=== PATIENT | male | born 1945 | race Caucasian/White ===

== ENCOUNTER → 2017-02-15 | Outpatient (CLI) | payer OTHER | END | disposition home or self-care (01) | LOC: GMAH 10:33 | PROVIDERS: ATTEND Family Medicine | DX: Z12.5 Encounter for screening for malignant neoplasm of prostate (principal); E78.2 Mixed hyperlipidemia | CPT/HCPCS: 84443; 84550; G0103 ==

== ENCOUNTER 2017-07-12 10:43 | Inpatient (IN) | payer OTHER ==
[2017-07-12] MEDS ORDERED: SODIUM CHLORIDE 0.9% (FLUSH) 10 ML SYG IV PRN ×2 (11:34→14:20)
[2017-07-12] MEDS ORDERED: VANCOMYCIN HCL INJ 1,000 MG, VANCOMYCIN HCL INJ 500 MG in SODIUM CHLORIDE 0.9% 250ML 25... IVPB ONE (11:35)
--- NOTE | 2017-07-12 11:39 | ED.PDOC ---
History of Present Illness - General Chief Complaint: Skin/Abrasion/Tear Stated Complaint: Rash to right leg Time Seen by Provider: 07/12/17 11:09 Source: patient, family Exam Limitations: no limitations - History of Present Illness Initial Comments: PT PRESENTS TO THE ED FOR RLE PAIN AND REDNESS X 1 DAY. PT WAS DIAGNOSED WITH STREP PHARYNGITIS 2 DAYS AGO AND STARTED ON KEFLEX. PT NOTICED REDNESS AND PAIN TO THE RLE YESTERDAY DESPITE BEING ON KEFLEX FOR STREP THROAT. Timing/Duration: 24 hours Severity: moderate Improving Factors: nothing Worsening Factors: nothing Associated Symptoms: denies symptoms Allergies/Adverse Reactions: Allergies NO KNOWN ALLERGY Allergy (Verified 07/12/17 11:17) Home Medications: Ambulatory Orders Aliskiren [Tekturna] 150 mg PO DAILY 12/02/14 Diltiazem HCl Coated Beads [Diltiazem Cd] 240 mg PO DAILY 12/02/14 Meloxicam [Mobic] 15 mg PO BID 12/02/14 Potassium Chloride [Micro-K] 8 meq PO DAILY 12/02/14 Temazepam 30 mg PO BEDTIME 07/12/17 Review of Systems - Review of Systems Constitutional: Denies: chills, fever EENTM: States: see HPI, throat pain. Denies: nose congestion Respiratory: Denies: cough, short of breath Cardiology: States: edema. Denies: chest pain, palpitations Gastrointestinal/Abdominal: Denies: abdominal pain, nausea, vomiting Genitourinary: Denies: dysuria, frequency Musculoskeletal: Denies: joint pain, joint swelling Skin: States: see HPI, change in color. Denies: dryness, lesions Neurological: Denies: headache, paresthesia Endocrine: States: no symptoms reported Hematologic/Lymphatic: States: no symptoms reported Past Medical History (General) - Patient Medical History Hx Seizures: No Hx Stroke: No Hx Dementia: No Hx Asthma: No Hx of COPD: No Hx Cardiac Disorders: No Hx Congestive Heart Failure: No Hx Pacemaker: No Hx Hypertension: Yes Hx Thyroid Disease: No Hx Diabetes: No Hx Gastroesophageal Reflux: No Hx Renal Disease: No Hx Cancer: No Hx of HIV: No Hx Hepatitis C: No Hx MRSA: No Surgical History: other - Vaccination History Hx Tetanus, Diphtheria Vaccination: No Hx Influenza Vaccination: Yes Hx Pneumococcal Vaccination: Yes Immunizations Up to Date: Yes - Social History Hx Tobacco Use: No Hx Chewing Tobacco Use: No Hx Alcohol Use: No Hx Substance Use: No Hx Substance Use Treatment: No Hx Depression: No Family Medical History - Family History Mother Family History: Unknown Physical Exam - Physical Exam General Appearance: Alert, No apparent distress Eye Exam: bilateral normal Ears, Nose, Throat: hearing grossly normal Neck: non-tender, full range of motion Respiratory: lungs clear, normal breath sounds, no respiratory distress Cardiovascular/Chest: regular rate, rhythm, no edema, no murmur Gastrointestinal/Abdominal: non tender, soft Back Exam: normal inspection Extremity: other - LARGE AREA OF ERYTHEMA AND TENDERNESS TO THE MEDIAL ASPECT OF THE RIGHT CALF. SEVERAL SUPERFICIAL ABRASIONS NOTED IN THE VACINITY OF THE ERYTHEMA. LYMPHANGITIC STREAKING UP THE MEDIAL ASPECT OF THE THIGH WITH SURROUNDING TENDERNESS. Neurologic: alert, normal mood/affect, oriented x 3 Skin Exam: normal color, warm/dry Progress - Results/Orders Results/Orders: 07/12/17 11:34 IV Care:Saline Lock per Protoc QSHIFT Sodium Chloride 0.9% (Flush) [Saline Flush Syringe] 10 ml IV PRN PRN 07/12/17 11:35 Vancomycin HCl Inj 1,000 mg Vancomycin HCl Inj 500 mg Sodium Chloride 0.9% 250Ml [NS 250ml] 250 ml IVPB ONCE 07/12/17 12:00 BLOOD CULTURE Stat Laboratory Results - last 24 hr 07/12/17 07/12/17 07/12/17 12:00 12:00 12:00 WBC 6.9 RBC 4.20 L Hgb 12.8 L Hct 36.9 L MCV 87.8 MCH 30.4 MCHC 34.6 RDW 14.3 Plt Count 149 MPV 7.9 Absolute Neuts (auto) 4.80 Absolute Lymphs (auto) 1.30 Absolute Monos (auto) 0.70 Absolute Eos (auto) 0.10 Absolute Basos (auto) 0.00 Neutrophils % 69.3 Lymphocytes % 19.0 L Monocytes % 9.8 H Eosinophils % 1.6 Basophils % 0.3 Sodium 134 L Potassium 3.9 Chloride 100 L Carbon Dioxide 26 Anion Gap 11.9 L BUN 30 H Creatinine 0.94 BUN/Creatinine Ratio 31.9 H Random Glucose 93 Serum Osmolality 274.1 L Calcium 9.0 Total Bilirubin 0.4 Direct Bilirubin < 0.1 Indirect Bilirubin 0.3 AST 24 ALT 16 Alkaline Phosphatase 46 Serum Total Protein 7.3 Albumin 3.5 Departure - Departure Clinical Impression: Failure of outpatient treatment Cellulitis Qualifiers: Site of cellulitis: extremity Site of cellulitis of extremity: lower extremity Laterality: right Qualified Code(s): L03.115 - Cellulitis of right lower limb Time of Disposition: 12:44 Disposition: Admit Patient Condition: Fair Departure Forms: ED Discharge - Pt. Copy, Patient Portal Self Enrollment Instructions: DI for Abrasion Referrals: Solo Pina MD [Primary Care Provider] - 1-2 Weeks Home Medications: Ambulatory Orders Aliskiren [Tekturna] 150 mg PO DAILY 12/02/14 Diltiazem HCl Coated Beads [Diltiazem Cd] 240 mg PO DAILY 12/02/14 Meloxicam [Mobic] 15 mg PO BID 12/02/14 Potassium Chloride [Micro-K] 8 meq PO DAILY 12/02/14 Temazepam 30 mg PO BEDTIME 07/12/17
[2017-07-12] MEDS ORDERED: SODIUM CHLORIDE 0.9% 250ML 250 ML ONE ×2 (11:48→23:10)
[2017-07-12] MEDS ORDERED: VANCOMYCIN HCL INJ 500 MG VIAL ONE ×2 (11:48→23:09)
[2017-07-12] MEDS ORDERED: VANCOMYCIN HCL INJ 1,000 MG VIAL IVPB ONE ×2 (11:48→23:10)
--- NOTE | 2017-07-12 13:48 | HP ---
HISTORY OF PRESENT ILLNESS: This 72 year-old white male was admitted to the hospital via the Emergency Room because of worsening infection in the right leg. He is followed closely by Dr. Pina in the clinic. On Monday morning, he became quite ill. This was 3 days ago. His illness included fever and chills with a sore throat. He was seen in the clinic on Monday, 2 days ago, in Dr. Pina's clinic and had a positive Strep test, and was started on Keflex 500 mg t.i.d. subsequently. This is the second bout of Strep pharyngitis within the last 3 weeks. He completed a 10 day course of Keflex 500 mg t.i.d. at the beginning of the month and was started on it again 2 days ago. On the following day, which would have been 1 day ago, he had worsening discomfort, tightness, pain and erythema involving the lower aspect of his right leg. This subsequently spread worsening to include over 50% of his leg with erythema fairly well demarcated and then with red streaking up the medial aspect of his thigh towards his groin. Symptoms worsened and he was referred to the Emergency Room because of worsening cellulitis having failed outpatient therapy on Keflex treatment. No previous history of similar symptoms. No history of DVTs in the past. The patient is currently retired. The patient is admitted to the hospital for parenteral antibiotic therapy after cultures are obtained to assist with resolution, but also preventing this from getting worse. PAST MEDICAL HISTORY: 1. Hypertension. 2. Skin cancer removed from the ear. 3. Significant nausea, vomiting and diarrhea present in September of this year resulting subsequently in 44 pounds of weight loss since then. PAST SURGICAL HISTORY: 1. Lumbar spine. 2. Both knee replacements. 3. Tonsillectomy at age 4. CURRENT MEDICATIONS: Please refer to list acquired by the nurse and verified his home medications. ALLERGIES: NONE KNOWN. FAMILY HISTORY: Positive for cancer, diabetes and strokes. SOCIAL HISTORY: He has been and is now retired as an agricultural teacher and a school custodian. He has never smoked. REVIEW OF SYSTEMS: Significant 44 pound weight loss since September evident recent with fever and chills with the current illness over the last 3 days persisting. HEENT: Recent sore throat showing some slight improvement. NECK: Supple. LUNGS: Some mild shortness of breath but no cough. No hemoptysis. CARDIOVASCULAR: No palpitations or chest pains. ABDOMEN: Some nausea and vomiting having been noted with his current illness but less diarrhea compared to September of this year. No blood in the stools. GENITOURINARY: Some burning upon urination evident. EXTREMITIES: Fairly significant erythema, pain and pus located out of a scabbed lesion on the anterior aspect of his right mid leg. This has spread with erythematous streaking up his medial aspect of his right thigh towards his groin. NEUROLOGIC: No focal neurological deficits. PHYSICAL EXAMINATION: VITAL SIGNS: Afebrile, pulse 56, blood pressure 125/70, room air saturation 95% . Weight is 118.8 kilos on a bed scale. GENERAL: The patient is awake, alert and oriented, and a good historian. His is also present for a portion of the history. HEENT: Within normal limits. Some erythema of the pharynx evident. NECK: Supple. No carotid bruits. No adenopathy. CHEST: Lungs are generally clear to auscultation. CARDIOVASCULAR: Heart tones are regular, fairly slow with no gallops. ABDOMEN: Soft with no organomegaly, masses or tenderness. EXTREMITIES: Left leg is within normal limits. Right leg has significant fairly well demarcated areas of erythema extending from the ankle and involving over 50% of the right calf and leg with a scab formation in the anterior garcia area as well as some small superficial dry scabs over the lower leg medially. PROCEDURE: The scab over the anterior garcia is removed by an 19 gauge needle allowing wound culture under the scab to be sent to the lab as the initial dose of vancomycin was being infused. Some tenderness is also noted over the medial thigh on palpation but no adenopathy at the groin at this time. NEUROLOGIC: No focal neurological deficits. LABORATORY: White count of 6,900 with 70% neutrophils, hemoglobin 12.8, normocytic normochromic presentation. Chemistry showed sodium 134 with sugar of 93, potassium 3.9, CO2 of 26, BUN 30, creatinine 0.94, 11.9 anion gap. Liver enzymes normal. Urinalysis generally clean. Blood cultures are pending as well as wound culture. ASSESSMENT: 1. Acute cellulitis right lower extremity especially involving the right leg and calf progressively worsening even though the patient currently on third day of Keflex therapy for a recent Streptococcus infection of the throat. 2. Recent acute recurrent Streptococcus pharyngitis documented with Strep screen in the clinic and on second course of therapy of Keflex 500 mg t.i.d. with erythematous cellulitis worsening on therapy. 3. Significant fatigue state. Will continue to evaluate for hypothyroidism versus cardiac etiologies plus the associated symptoms of a significant cellulitis. 4. History of significant weight loss after a course of gastrointestinal symptoms in September of this year with some residual weakness and nausea and vomiting currently present with his current illness. PLAN: Continue close followup. Start vancomycin per Pharmacy protocol. Observe closely. Rule out a DVT. Evaluate inflammatory markers with a C reactive protein and ESR. Elevate the right leg. Do a chest x-ray. Given some IV administration with potassium for moderate degree of dehydration state. Cleanse skin of the leg with dilute Hibiclens and dress to prevent spread locally. Observe closely. Will require at least 2 to 3 days of treatment as we observe the clinical course and await culture results. #[id number] [facility]
[2017-07-12] MEDS ORDERED: MAGNESIUM HYDROXIDE 30 ML UD PO PRN (14:20)
[2017-07-12] MEDS ORDERED: HYDROcodone 5MG/APAP 325MG 1 EA TAB PO PRN (14:20)
[2017-07-12] MEDS ORDERED: LEVALBUTEROL NEBS 1.25 MG/3 ML VIAL NEB PRN (14:20)
[2017-07-12] MEDS ORDERED: ONDANSETRON INJ 4 MG/2 ML VIAL IV PRN (14:20)
[2017-07-12] MEDS ORDERED: IV SET AND CAP CHANGE INJ INJ SCH (14:30)
[2017-07-12] MEDS ORDERED: CHLORHEXIDINE GLUCONATE 4 % 15 ML UD TOP ONE (15:00)
[2017-07-12] MEDS ORDERED: VANCOMYCIN PER PHARMACY INJ SCH (15:00)
[2017-07-12] MEDS: BIFIDOBACTERIUM INFANTIS 4 MG CAP PO SCH ×2 (15:26→20:53)
[2017-07-12] MEDS: CHLORHEXIDINE GLUC 4% 15ML 45 ML, WATER FOR IRRIGATION 1,000 ML TOP SCH ×4 (15:39→20:52)
--- NOTE | 2017-07-12 16:48 | RAD ---
EXAM DESCRIPTION: Chest,2 Views CLINICAL HISTORY: weakness, fever COMPARISON: None. FINDINGS: Two views of the chest are submitted. Cardiac silhouette appears normal. No focal parenchymal or pleural disease. No acute bony abnormality. There is no significant pulmonary vascular engorgement. IMPRESSION: No evidence of acute cardiopulmonary disease. Electronically signed by: Pete Henderson 07/12/2017 4:47 PM ENVIRONMENTAL LABORATORY TECHNICIAN
--- NOTE | 2017-07-12 17:07 | US ---
EXAM DESCRIPTION: Venous,Lower Extremity RT CLINICAL HISTORY: 72 years Male DVT? COMPARISON: None. TECHNIQUE: Duplex and color Doppler imaging performed to evaluate the extremity deep venous structures. Compression imaging and augmentation imaging performed. FINDINGS: No thrombus is identified in the deep venous structures imaged. There is normal flow, compressibility, and augmentation throughout. IMPRESSION: No DVT is identified. Electronically signed by: Pete Henderson 07/12/2017 5:06 PM FRAME PULLEY MORTISING MACHINE OPERATOR
--- NOTE | 2017-07-12 18:54 | PCM.CORE ---
Physician DVT/VTE - Prophylaxis Currently: Patient already on anticoagulation therapy - Nurse DVT Assessment & Total Each Risk Factor Represents 2 Points: Age 60-74 Each Risk Factor is 1 Point: Obesity (BMI >25) DVT Assessment Score: 3 - 3-4 High Risk Treatments: Sequential Compression Device Pharmacological: Enoxaparin 40 mg SQ Daily
[2017-07-12] MEDS ORDERED: ENOXAPARIN SODIUM 40 MG/0.4 ML SYG SUBCU SCH (19:00)
[2017-07-12] MEDS ORDERED: TEMAZEPAM 15 MG CAP ONE (19:02)
[2017-07-12] MEDS: TEMAZEPAM 15 MG CAP PO SCH (22:44)
[2017-07-13] MEDS: KCL 20 MEQ/NS 1,000 ML IVS PRN ×2 (00:22→17:14)
[2017-07-13] MEDS: VANCOMYCIN HCL INJ 1,000 MG, VANCOMYCIN HCL INJ 250 MG in SODIUM CHLORIDE 0.9% 250ML 25... IVPB SCH ×2 (00:25→11:21)
[2017-07-13] MEDS ORDERED: OMEPRAZOLE CAP 20 MG CAP ONE (05:04)
[2017-07-13] MEDS: OMEPRAZOLE CAP 20 MG CAP PO SCH (06:32)
[2017-07-13] MEDS ORDERED: MELOXICAM 7.5 MG TAB ONE (07:20)
[2017-07-13] MEDS: POTASSIUM CHLORIDE 8 MEQ TAB PO SCH (07:43)
[2017-07-13] MEDS: BIFIDOBACTERIUM INFANTIS 4 MG CAP PO SCH ×2 (08:37→21:21)
[2017-07-13] MEDS: ALISKIREN 150 MG PO SCH (08:38)
[2017-07-13] MEDS: MELOXICAM 7.5 MG TAB PO SCH (08:38)
[2017-07-13] MEDS: CHLORHEXIDINE GLUC 4% 15ML 45 ML, WATER FOR IRRIGATION 1,000 ML TOP SCH ×4 (08:38→21:22)
[2017-07-13] MEDS ORDERED: VANCOMYCIN HCL INJ 500 MG VIAL ONE ×2 (11:09→19:43)
[2017-07-13] MEDS ORDERED: SODIUM CHLORIDE 0.9% 250ML 250 ML ONE ×2 (11:09→19:43)
[2017-07-13] MEDS ORDERED: VANCOMYCIN HCL INJ 1,000 MG VIAL IVPB ONE ×2 (11:09→19:43)
--- NOTE | 2017-07-13 13:18 | PN ---
DATE: 07/13/17 SUBJECTIVE: the patient is seen today accompanied by Dr. Solo Pina, his primary care provider. The patient states there is significant improvement with less swelling and soreness upon range of motion as well as erythema of the leg compared to last evening. No shortness of breath, no nausea or vomiting. OBJECTIVE: VITAL SIGNS: Afebrile. Pulse 67. Blood pressure 169/88. Pulse oximetry 96% on room air. LUNGS: Clear. HEART: Regular. ABDOMEN: Soft. EXTREMITIES: There is diminished intensity of the erythema changes of the right leg and cellulitis with almost complete clearing of the lymphatic erythema spreading up the medial aspect of the right thigh. Still somewhat tender to palpation in the region of the right calf. No significant pus drainage from the area where the scab had previously been removed. Cleansing continues with diluted Hibiclens. LABORATORY: White count 5,100, hemoglobin 12.5. Chemistries show potassium 3.9 , sodium up to 139, BUN down to 27, creatinine 0.89, glucose 87, liver enzymes normal. Troponin 0, C-reactive protein very elevated at 17.7, TSH normal at 1.14. Sedrate 22. Urine is clean. Antistreptolysin screen was performed and was within normal limits, especially with the history of the recent strep pharyngitides and concern for an immune complex process contributing to his weight loss. Cultures of the right leg and blood cultures are negative at this time. It is of note that the culture on the wound of the right leg was obtained shortly after the initiation of the vancomycin, which may adversely affect the growth of organisms as collected. ASSESSMENT: 1. Acute cellulitis, right lower extremity especially involving the right leg and calf progressively worsening even though the patient currently on Keflex therapy for a recent Streptococcus infection of the throat. 2. Recent acute recurrent Streptococcus pharyngitis documented with Strep screen in the clinic and on second course of therapy of Keflex 500 mg t.i.d. with erythematous cellulitis worsening on therapy. 3. Significant fatigue state. Will continue to evaluate for hypothyroidism versus cardiac etiologies plus the associated symptoms of a significant cellulitis. 4. History of significant weight loss after a course of gastrointestinal symptoms in September of this year with some residual weakness and nausea and vomiting currently present with his current illness. PLAN: We will need to continue with current therapy and evaluate cultures and sensitivities by in the morning. If cultures fail to show any particular growth , then must consider an outpatient program such as Bactrim and doxycycline. History of strep recently did not show an elevated ASO titer. Continue evaluation because of the significant weight loss and the elevated C-reactive protein for any type of an immune process contributing and triggered by the significant GI symptoms back in September. Specialized followup necessary as indicated. Close followup with Dr. Pina in clinic. [facility][id number] [facility]
[2017-07-13] MEDS ORDERED: ENOXAPARIN SODIUM 40 MG/0.4 ML SYG SUBCU ONE (19:42)
[2017-07-13] MEDS: ENOXAPARIN SODIUM 40 MG/0.4 ML SYG SUBCU SCH (21:21)
[2017-07-13] MEDS: TEMAZEPAM 15 MG CAP PO SCH (22:57)
[2017-07-14] MEDS: VANCOMYCIN HCL INJ 1,000 MG, VANCOMYCIN HCL INJ 250 MG in SODIUM CHLORIDE 0.9% 250ML 25... IVPB SCH ×2 (00:19→12:51)
[2017-07-14] MEDS: KCL 20 MEQ/NS 1,000 ML IVS PRN (05:53)
[2017-07-14] MEDS: OMEPRAZOLE CAP 20 MG CAP PO SCH (06:12)
[2017-07-14] MEDS: POTASSIUM CHLORIDE 8 MEQ TAB PO SCH (08:00)
[2017-07-14] MEDS: BIFIDOBACTERIUM INFANTIS 4 MG CAP PO SCH ×2 (09:37→20:56)
[2017-07-14] MEDS: MELOXICAM 7.5 MG TAB PO SCH (09:37)
[2017-07-14] MEDS: CHLORHEXIDINE GLUC 4% 15ML 45 ML, WATER FOR IRRIGATION 1,000 ML TOP SCH ×4 (09:39→21:00)
[2017-07-14] MEDS: ALISKIREN 150 MG PO SCH (09:43)
--- NOTE | 2017-07-14 10:33 | PN ---
SUPERVISING PHYSICIAN: Kevon Murry MD DATE: 07/14/17 SUBJECTIVE: The patient is lying in his hospital bed with no complaints. He has no complaints of chest pain, shortness of breath, nausea, vomiting or diarrhea. He feels much better today and is pleased with the improvement in his right lower leg infection. OBJECTIVE: VITAL SIGNS: Afebrile. Heart rate 58. Blood pressure 145/80. Respiratory rate 18. O2 saturation 96% on room air. LUNGS: Clear to auscultation bilaterally. CARDIAC: Regular rate and rhythm. ABDOMEN: Soft, nondistended, nontender. Bowel sounds are positive. EXTREMITIES: Bilateral pedal pulses are +2. The area of erythema on his right lower leg has improved greatly. He only has a mild area of erythema to the medial portion of his right lower leg, approximately 10 to 12 cm. It is cool to the touch and there is no drainage or fluctuance and no edema. Previous markings of his infection have decreased to less than 40% of the previous markings. NEUROLOGIC: Awake, alert and oriented times three. LABORATORY: Electrolytes are basically within normal limits with BUN 27, creatinine 0.89. CBC is basically within normal limits with stable hemoglobin and hematocrit of 12.5 and 36.6. TSH 1.14. Preliminary wound culture shows no growth at 24 hours as well as his preliminary blood cultures show no growth at 24 hours. All other labs and films have been reviewed via the EMR. ASSESSMENT: 1. Acute cellulitis, right lower extremity with failed outpatient therapy and admitted on Keflex for for a recent Streptococcus infection of the throat. Cellulitis is improving on vancomycin. 2. Recent acute recurrent Streptococcus pharyngitis with positive Strep screen, improved. 3. Significant fatigue, improved. 4. History of significant weight loss after a course of gastrointestinal symptoms in September of this year. PLAN: We will continue present supportive care and continue to monitor cultures as well as ESR and CRP tomorrow. I will give him one additional day of vancomycin therapy since he is improving quite well. If his cultures are negative tomorrow, we can send him home on oral antibiotics such as doxycycline and Bactrim. If they continue to be elevated, he may need an immunology referral. I have discontinued his IV fluids and have encouraged him to increase his ambulation today. I have also encouraged good pulmonary hygiene. We will continue present supportive care and followup as needed. Dr. Murry is the collaborating physician and available for consultation. [facility][id number] [facility]
[2017-07-14] MEDS ORDERED: VANCOMYCIN HCL INJ 500 MG VIAL ONE ×2 (12:24→20:32)
[2017-07-14] MEDS ORDERED: SODIUM CHLORIDE 0.9% 250ML 250 ML ONE ×2 (12:24→20:32)
[2017-07-14] MEDS ORDERED: VANCOMYCIN HCL INJ 1,000 MG VIAL IVPB ONE ×2 (12:24→20:33)
[2017-07-14] MEDS ORDERED: SODIUM CHLORIDE 0.9% 10 ML VIAL ONE (20:35)
[2017-07-14] MEDS: ENOXAPARIN SODIUM 40 MG/0.4 ML SYG SUBCU SCH (20:56)
[2017-07-14] MEDS: SODIUM CHLORIDE 0.9% (FLUSH) 10 ML SYG IV SCH (20:57)
[2017-07-14] MEDS: TEMAZEPAM 15 MG CAP PO SCH (22:39)
[2017-07-15] MEDS: VANCOMYCIN HCL INJ 1,000 MG, VANCOMYCIN HCL INJ 250 MG in SODIUM CHLORIDE 0.9% 250ML 25... IVPB SCH ×2 (00:21→11:38)
[2017-07-15] MEDS: OMEPRAZOLE CAP 20 MG CAP PO SCH (06:00)
[2017-07-15] MEDS: SODIUM CHLORIDE 0.9% (FLUSH) 10 ML SYG IV SCH (08:00)
[2017-07-15] MEDS: MELOXICAM 7.5 MG TAB PO SCH (08:00)
[2017-07-15] MEDS: BIFIDOBACTERIUM INFANTIS 4 MG CAP PO SCH (08:00)
[2017-07-15] MEDS: ALISKIREN 150 MG PO SCH (08:00)
[2017-07-15] MEDS: CHLORHEXIDINE GLUC 4% 15ML 45 ML, WATER FOR IRRIGATION 1,000 ML TOP SCH ×2 (08:01)
[2017-07-15] MEDS: POTASSIUM CHLORIDE 8 MEQ TAB PO SCH (08:06)
[2017-07-15 10:15] VITALS: BP 160/70; TEMP 97.5; O2SAT 98
[2017-07-15] MEDS ORDERED: SODIUM CHLORIDE 0.9% 250ML 250 ML ONE (11:31)
[2017-07-15] MEDS ORDERED: VANCOMYCIN HCL INJ 500 MG VIAL ONE (11:31)
[2017-07-15] MEDS ORDERED: VANCOMYCIN HCL INJ 1,000 MG VIAL IVPB ONE (11:32)
--- NOTE | 2017-07-15 13:12 | DS ---
SUPERVISING PHYSICIAN: Kevon Muryr M.D. DISCHARGE DIAGNOSIS: 1. Acute cellulitis of the right lower extremity with failed outpatient therapy and admitted on Keflex for recent Streptococcus infection of the throat. Cellulitis is improving on vancomycin. 2. Recent acute recurrent Streptococcus pharyngitis with positive Strep screen , improved. 3. Significant fatigue that has improved. 4. History of significant weight loss after a course of gastrointestinal symptoms in September of this year. He has lost approximately 40 pounds. HISTORY OF PRESENT ILLNESS: This is a 72 year-old male patient that was admitted to the hospital via the Emergency Room due to worsening infection in his right lower leg. He had seen his primary care physician, Dr. Pina, in the clinic several days before due to fever and chills associated with a sore throat. He was seen in the clinic on Monday. His Strep test was positive. He was started on Keflex. This was his second bout of Strep pharyngitis within the last 3 weeks. He had completed a 10 day course of Keflex earlier in the month and was again seen in the clinic for those symptoms. During this time, he had tightness and pain with erythema that involved the lower medial aspect of his right leg that extended up into his calf. It continued to spread worsening to include 50% of his leg with erythema with a fairly well demarcated red streaking up the medial aspect of his thigh toward his groin. Symptoms worsened so he came to the Emergency Room. He has no history of cellulitis or history of DVTs. He was admitted to the hospital for vancomycin therapy as well as to monitor cultures. HOSPITAL COURSE: He was admitted to the hospital and placed on vancomycin as well as Probiotics. Initially when he was in the hospital his ESR was 22 and CRP was 70.7. His white count was always within normal limits. He also had a lower extremity ultrasound that was negative for DVT. His cellulitis improved markedly over the next few days and today there is very minimal erythema to the medial portion of his lower leg. There is no tenderness or edema. There is no fluctuance or drainage and he will be discharged home today in stable condition. He will receive 1 additional dosing of vancomycin before discharge. The patient's vital signs have been stable. Today, his ESR is within normal limits and his CRP has decreased to 3.3. DISCHARGE PLAN: The patient will be discharged home in stable condition to resume his previous activity. It is recommended that he elevate his right leg as much as possible. He will be discharged on 7 days of Bactrim and Doxycycline. He has a followup appointment with Dr. Pina on 07/20/17 at 9: 15 AM. Recommend a CRP to be done at followup appointment to check for resolution. He is to return to the hospital for any further complications or worsening of his symptoms. He is to resume his previous diet and activity level. DISCHARGE MEDICATIONS: 1. Micro-K. 2. Mobic. 3. Diltiazem. 4. Tekturna. 5. Temazepam. 6. Doxycycline. 7. Lactobacillus. 8. Bactrim DS. Dr. Murry is the collaborating physician available for consultation. #[id number] and [id number] [facility] [place]
== END 2017-07-15 13:55 | disposition home or self-care (01) | DRG 603 ==
LOC: ER 10:43 → MS 13:47
PROVIDERS: ADMIT Emergency Medicine; ATTEND Nurse Practitioner Acute Care
DX: L03.115 Cellulitis of right lower limb (principal); J02.0 Streptococcal pharyngitis; I10 Essential (primary) hypertension; Z96.653 Presence of artificial knee joint, bilateral; R53.83 Other fatigue; R63.4 Abnormal weight loss; Z79.899 Other long term (current) drug therapy; Z68.33 Body mass index [BMI] 33.0-33.9, adult

== ENCOUNTER → 2017-07-20 | Outpatient (CLI) | payer OTHER | END | disposition home or self-care (01) | LOC: GMAH 10:23 | PROVIDERS: ATTEND Family Medicine | DX: L03.115 Cellulitis of right lower limb (principal) ==

== ENCOUNTER → 2018-05-14 | Outpatient (CLI) | payer OTHER | LOC: GMAH 11:19 | PROVIDERS: ATTEND Family Medicine | DX: I10 Essential (primary) hypertension (principal); E78.2 Mixed hyperlipidemia; Z12.5 Encounter for screening for malignant neoplasm of prostate | CPT/HCPCS: 84443; 84550; G0103 ==

== ENCOUNTER → 2018-11-30 | Outpatient (CLI) | payer OTHER ==
--- NOTE | 2018-11-30 13:40 | RAD ---
EXAM DESCRIPTION: Knee,Right Complete CLINICAL HISTORY: 73 years Male, M25.561, M25.551 TECHNIQUE: views of the knee were performed. COMPARISON: None available. FINDINGS: The visualized bones appear well mineralized. No acute fracture or dislocation. No evidence of suprapatellar joint effusion. The soft tissues appear grossly unremarkable. IMPRESSION: Electronically signed by: Gelacio Hassan MD 11/30/2018 1:37 PM CDT
--- NOTE | 2018-11-30 13:40 | RAD ---
EXAM DESCRIPTION: Pelvis CLINICAL HISTORY: 73 years Male, M25.561, M25.551 COMPARISON: None. TECHNIQUE: AP radiograph of the pelvis was performed. FINDINGS: The pelvic ring is grossly intact. The visualized bones are well-mineralized. Moderate bilateral SI joint and hip joint degenerative changes noted. Visualized lumbar spine also demonstrates moderate degenerative changes. IMPRESSION: 1. Single AP radiograph of the pelvis demonstrates grossly intact pelvic ring. 2. Moderate bilateral hip joint osteoarthritic changes. Electronically signed by: Gelacio Hassan MD 11/30/2018 1:37 PM CDT
== END ==
LOC: RAD 08:01
PROVIDERS: ATTEND Orthopaedic Surgery
DX: M17.11 Unilateral primary osteoarthritis, right knee (principal); M16.0 Bilateral primary osteoarthritis of hip; Z96.651 Presence of right artificial knee joint

== ENCOUNTER → 2019-05-23 | Outpatient (CLI) | payer OTHER | LOC: GMA MATASK 10:31 | PROVIDERS: ATTEND Family Medicine | DX: I10 Essential (primary) hypertension (principal); E78.2 Mixed hyperlipidemia; Z12.5 Encounter for screening for malignant neoplasm of prostate | CPT/HCPCS: 84443; 84550; G0103 ==

== ENCOUNTER → 2019-05-29 | Outpatient (CLI) | payer OTHER | LOC: GMA MATASK 09:35 | PROVIDERS: ATTEND Family Medicine | DX: R19.7 Diarrhea, unspecified (principal) ==

== ENCOUNTER → 2019-10-23 | Outpatient (CLI) | payer OTHER ==
--- NOTE | 2019-10-23 13:18 | NM ---
EXAM DESCRIPTION: Bone Scan, 3Phase CLINICAL HISTORY: 74 years Male, right knee pain COMPARISON: Right knee radiograph dated October 17, 2019 TECHNIQUE: Following intravenous administration of 26.2 mCi technetium 99m MDP, three-phase bone scan over both knees. FINDINGS: Blood flow phase: Increased blood flow to the lateral femoral condyle region of the right knee. No abnormal increased blood flow to the left knee. Blood pool phase: Increased blood pool to the lateral femoral condylar region of the right knee. Mild increased blood pool also noted to the medial femoral condylar region of the right knee. No abnormal increased blood pool to the left knee Delayed phase: Mesenteric increased delayed phase uptake lateral femoral condylar region of the right knee. Increased delayed phase uptake also noted of the medial and lateral tibial plateaus of the right knee and right patella. Delayed phase uptake also noted of the medial tibial plateau of the left knee. Photopenic defects of the bilateral knees, compatible with bilateral knee prosthesis. IMPRESSION: 1. Positive three-phase bone scan involving the lateral femoral condyle of the right knee. In the appropriate clinical settings, findings would be compatible with prosthesis loosening. Infectious process can also demonstrated positive three-phase bone scan. Please correlate clinically. 2. Mild increased blood pool of the medial femoral condylar region of the right knee, likely representing reactive activity. 3. Delayed phase uptake involving the medial and lateral tibial plateaus and patella of the right knee as well as the medial tibial plateau of the left knee. These most likely represent reactive change/uptake. Electronically signed by: Sly Riddle MD 10/23/2019 1:17 PM CDT
== END ==
LOC: NM 09:00
PROVIDERS: ATTEND Orthopaedic Surgery
DX: M25.561 Pain in right knee (principal)
CPT/HCPCS: 78315; A9503

== ENCOUNTER 2019-12-11 05:53 | Day surgery (SDC) | payer OTHER ==
[2019-12-11] MEDS ORDERED: LIDOCAINE 1% 10 ML VIAL INJ ONE ×4 (07:00→10:50)
[2019-12-11] MEDS ORDERED: PROPOFOL 200 MG/20 ML VIAL IV ONE (07:00)
[2019-12-11] MEDS ORDERED: ceFAZolin SODIUM 1 GM VIAL ONE ×2 (07:47→09:28)
[2019-12-11] MEDS ORDERED: LACTATED RINGERS 1,000 ML ONE (07:47)
[2019-12-11] MEDS ORDERED: SODIUM CHL 0.9% 100ML MINI-BAG 100 ML IVPB ONE (07:47)
[2019-12-11] MEDS ORDERED: VANCOMYCIN HCL INJ 1,000 MG VIAL IVPB ONE ×3 (09:28→10:50)
[2019-12-11] MEDS ORDERED: BUPIVACAINE 0.25% INJ 30 ML VIAL INJ ONE ×3 (09:28→10:50)
[2019-12-11 10:01] VITALS: O2SAT 97
[2019-12-11] MEDS ORDERED: ceFAZolin SODIUM 1 GM VIAL IRRIG ONE ×2 (10:20→10:50)
[2019-12-11] MEDS ORDERED: fentaNYL CITRATE INJ 50 MCG/ML 2 ML AMP ONE (10:39)
[2019-12-11] MEDS ORDERED: MIDAZOLAM INJ 2 MG/2 ML VIAL ONE (10:39)
[2019-12-11 12:15] VITALS: BP 140/68; TEMP 96.5
--- NOTE | 2019-12-12 08:29 | OP ---
DATE OF PROCEDURE: 12/11/19 PREOPERATIVE DIAGNOSIS: 1. Left carpal tunnel syndrome. POSTOPERATIVE DIAGNOSIS: 1. Left carpal tunnel syndrome. PROCEDURE: 1. Left carpal tunnel release. SURGEON: Pedro Negrete MD. VALVE SETTER: Pete Gayle CST, SA-C. ANESTHESIA: Local with sedation. COMPLICATIONS: None. FINDINGS: Thickening of the transverse carpal ligament. INDICATION: Mr. Fernandez has a history of symptoms consistent with carpal tunnel syndrome. Unfortunately, he has failed to gain relief with conservative measures. After discussing the risks, benefits and alternatives to operative therapy, the patient has given informed consent for carpal tunnel release. PROCEDURE: The patient was brought to the Operating Room and placed in the supine position. Sedation was administered and local anesthetic was injected into the operative area under sterile conditions. After the injection of anesthetic, the arm was sterilely prepped and draped. A longitudinal incision was made directly overlying the transverse carpal ligament and blunt dissection was carried down to the ligament. The transverse carpal ligament was sharply transected along its length and a [place] elevator was used to ensure complete release of the ligament. Once release had been confirmed, the wound was thoroughly irrigated and the wound was closed with Nylon suture. A sterile dressing was placed and the patient was taken to the Day Surgery Unit. POSTOPERATIVE PLAN: The patient has been instructed to do range of motion of the digits and will followup with us in two days. #[id number] [facility]TD[facility]
== END 2019-12-11 12:05 | disposition home or self-care (01) ==
LOC: AMB 05:53
PROVIDERS: ATTEND Orthopaedic Surgery
DX: G56.02 Carpal tunnel syndrome, left upper limb (principal); I10 Essential (primary) hypertension; Z79.899 Other long term (current) drug therapy

== ENCOUNTER 2020-01-08 07:35 | Day surgery (SDC) | payer OTHER ==
[~2020-01-08 07:35] MED LIST: LIDOCAINE 1% 10 ML VIAL INJ ONE; PROPOFOL 200 MG/20 ML VIAL IV ONE
[2020-01-08] MEDS ORDERED: ceFAZolin SODIUM 1 GM VIAL IVPB ONE (08:16)
[2020-01-08] MEDS ORDERED: BUPIVACAINE 0.25% INJ 30 ML VIAL INJ ONE (08:25)
[2020-01-08] MEDS ORDERED: LIDOCAINE 1% 10 ML VIAL INJ ONE ×2 (08:25)
[2020-01-08] MEDS ORDERED: VANCOMYCIN HCL INJ 1,000 MG VIAL IVPB ONE ×2 (08:37→08:50)
[2020-01-08] MEDS ORDERED: ceFAZolin SODIUM 1 GM VIAL INJ ONE ×2 (08:37→08:50)
[2020-01-08 09:38] VITALS: BP 136/61; TEMP 97.8; O2SAT 97
--- NOTE | 2020-01-08 09:41 | OP ---
DATE OF PROCEDURE: 01/08/20 PREOPERATIVE DIAGNOSIS: 1. Right carpal tunnel syndrome. POSTOPERATIVE DIAGNOSIS: 1. Right carpal tunnel syndrome. PROCEDURE: 1. Carpal tunnel release. SURGEON: Pedro Negrete MD. JOB DEVELOPER [employer]: Pete Gayle CST, SA-C. ANESTHESIA: Local with sedation. COMPLICATIONS: None. FINDINGS: Thickening of the transverse carpal ligament. INDICATION: Mr. Fernandez has a history of symptoms consistent with carpal tunnel syndrome. He has had contralateral carpal tunnel release and has requested carpal tunnel release on his right side. After discussing the risks, benefits and alternatives to that, the patient has given informed consent for carpal tunnel release. PROCEDURE: The patient was brought to the Operating Room and placed in the supine position. Sedation was administered and local anesthetic was injected into the operative area under sterile conditions. After the injection of anesthetic, the arm was sterilely prepped and draped. A longitudinal incision was made directly overlying the transverse carpal ligament and blunt dissection was carried down to the ligament. The transverse carpal ligament was sharply transected along its length and a [place] elevator was used to ensure complete release of the ligament. Once release had been confirmed, the wound was thoroughly irrigated and the wound was closed with Nylon suture. A sterile dressing was placed and the patient was taken to the Day Surgery Unit. POSTOPERATIVE PLAN: The patient has been encouraged to do range of motion of the digits and will followup with us in two days. #[id number] [facility]TDD
== END 2020-01-08 09:30 | disposition home or self-care (01) ==
LOC: AMB 07:35
PROVIDERS: ATTEND Orthopaedic Surgery
DX: G56.01 Carpal tunnel syndrome, right upper limb (principal); I10 Essential (primary) hypertension; E66.9 Obesity, unspecified; M19.042 Primary osteoarthritis, left hand; M19.041 Primary osteoarthritis, right hand; Z79.899 Other long term (current) drug therapy; Z79.1 Long term (current) use of non-steroidal anti-inflammatories (NSAID)
CPT/HCPCS: 01810; 64721; 80307; 87070; 87077; J0690; J3370; J3490

== ENCOUNTER → 2020-05-04 | Outpatient (CLI) | payer OTHER | LOC: LAB.O 13:38 | PROVIDERS: ATTEND Orthopaedic Surgery | DX: Z01.818 Encounter for other preprocedural examination (principal) ==

== ENCOUNTER 2020-05-12 05:31 | Inpatient (IN) | payer OTHER ==
[2020-05-12] MEDS ORDERED: SODIUM CHL 0.9% 100ML MINI-BAG 100 ML IVPB ONE (05:39)
[2020-05-12] MEDS ORDERED: ceFAZolin SODIUM 1 GM VIAL ONE ×3 (05:40→09:02)
[2020-05-12] MEDS ORDERED: LACTATED RINGERS 1,000 ML ONE (05:40)
[2020-05-12] MEDS ORDERED: SODIUM CHLORIDE 0.9% 250ML 250 ML ONE (05:40)
[2020-05-12] MEDS ORDERED: TRANEXAMIC ACID 1,000 MG/10 ML VIAL ONE ×2 (05:40→05:41)
[2020-05-12] MEDS ORDERED: VANCOMYCIN HCL INJ 1,000 MG VIAL IVPB ONE ×5 (05:40→09:10)
[2020-05-12] MEDS ORDERED: SODIUM CHLORIDE 0.9% (FLUSH) 10 ML SYG ONE (05:40)
[2020-05-12] MEDS ORDERED: SODIUM CHLORIDE 0.9% 100ML 100 ML IVPB ONE ×2 (05:40→16:18)
[2020-05-12] MEDS ORDERED: BUPIVACAINE 0.5% 30 ML VIAL INJ ONE ×2 (06:22→06:52)
[2020-05-12] MEDS ORDERED: BUPIVACAINE LIPOSOME 13.3 MG/ML VIAL INJ ONE ×2 (06:22→06:52)
[2020-05-12] MEDS ORDERED: HYDROmorphone HCL INJ 2 MG/ML VIAL ONE (06:37)
[2020-05-12] MEDS ORDERED: MIDAZOLAM INJ 5 MG/5 ML VIAL ONE (06:37)
[2020-05-12] MEDS ORDERED: KETAMINE HCL 100 MG/ML VIAL ONE (06:37)
[2020-05-12] MEDS ORDERED: FAMOTIDINE INJ 10 MG/ML VIAL IV ONE (06:37)
[2020-05-12] MEDS ORDERED: methylPREDNISolone ACETATE 80 MG/ML VIAL ONE (06:45)
[2020-05-12] MEDS ORDERED: BUPIVACAINE 0.25% INJ 30 ML VIAL INJ ONE ×2 (06:45→09:43)
[2020-05-12] MEDS ORDERED: LIDOCAINE 1% 10 ML VIAL INJ ONE ×3 (06:45→09:41)
[2020-05-12] MEDS ORDERED: ceFAZolin SODIUM 1 GM VIAL IRRIG ONE ×2 (06:52→09:10)
[2020-05-12] MEDS ORDERED: PROPOFOL 200 MG/20 ML VIAL IV ONE (07:00)
[2020-05-12] MEDS ORDERED: DEXAMETHASONE INJ 10 MG/ML VIAL ONE (07:00)
[2020-05-12] MEDS ORDERED: SODIUM CHLORIDE 0.9% 50 ML VIAL ONE (07:00)
[2020-05-12] MEDS ORDERED: GLYCOPYRROLATE 0.2 MG/ML VIAL ONE (07:00)
[2020-05-12] MEDS ORDERED: MAGNESIUM SULFATE INJ 1 GM/2 ML VIAL ONE (07:00)
[2020-05-12] MEDS ORDERED: methylPREDNISolone ACETATE 80 MG/ML VIAL IM ONE (09:44)
[2020-05-12] MEDS ORDERED: ELECTROLYTE-A 1,000 ML IVS ONE (09:46)
[2020-05-12] MEDS ORDERED: MAGNESIUM HYDROXIDE 30 ML UD PO PRN (10:26)
[2020-05-12] MEDS ORDERED: PROMETHAZINE HCL INJ 25 MG in SODIUM CHLORIDE 0.9% 50ML 50 ML IVPB PRN (10:26)
[2020-05-12] MEDS ORDERED: ACETAMINOPHEN 325 MG TAB PO PRN (10:26)
[2020-05-12] MEDS ORDERED: BENZOCAINE-MENTH LOZ (CEPACOL) 1 EA LOZ MT PRN (10:26)
[2020-05-12] MEDS ORDERED: ONDANSETRON INJ 4 MG/2 ML VIAL IV PRN (10:26)
[2020-05-12] MEDS ORDERED: ZOLPIDEM TARTRATE 5 MG TAB PO PRN (10:26)
[2020-05-12] MEDS ORDERED: TRANEXAMIC ACID INJ 1,000 MG in SODIUM CHLORIDE 0.9% 100ML 100 ML IVPB ONE (10:26)
[2020-05-12] MEDS ORDERED: MORPHINE SULFATE INJ 10 MG/ML VIAL IM PRN (10:26)
[2020-05-12] MEDS ORDERED: ALUMINUM & MAGNESIUM HYDROXIDE 30 ML UD PO PRN (10:26)
[2020-05-12] MEDS ORDERED: PROMETHAZINE HCL INJ 12.5 MG in SODIUM CHLORIDE 0.9% 50ML 50 ML IVPB PRN (10:26)
[2020-05-12] MEDS ORDERED: BISACODYL SUPPOSITORY 10 MG PR PRN (10:26)
[2020-05-12] MEDS ORDERED: SODIUM CHLORIDE 0.9% (FLUSH) 10 ML SYG IV PRN (10:26)
[2020-05-12] MEDS ORDERED: ACETAMINOPHEN 500 MG TAB PO PRN (10:26)
[2020-05-12] MEDS ORDERED: NALOXONE HCL INJ 0.4 MG/ML VIAL IV PRN (10:26)
[2020-05-12] MEDS ORDERED: traMADol HCL 50 MG TAB PO PRN (10:26)
[2020-05-12] MEDS ORDERED: HYDROcodone 5MG/APAP 325MG 1 EA TAB PO PRN (10:26)
[2020-05-12] MEDS ORDERED: CYCLOBENZAPRINE HCL 10 MG TAB PO PRN (10:26)
[2020-05-12] MEDS ORDERED: DEX 5% W/NACL 0.45% 1000ML 1,000 ML IVS PRN (10:26)
[2020-05-12] MEDS ORDERED: HYDROcodone 10MG/APAP 325MG 1 EA TAB PO PRN (10:26)
[2020-05-12] MEDS ORDERED: MORPHINE SULFATE INJ 10 MG/ML VIAL IV PRN (10:26)
[2020-05-12] MEDS ORDERED: MORPHINE PCA 1 MG/ML 100 ML BAG IVPB SCH (10:30)
[2020-05-12] MEDS ORDERED: IV SET AND CAP CHANGE INJ INJ SCH (10:30)
[2020-05-12] MEDS ORDERED: CADD ADMIN SET 1 EA PKG INJ ONE (10:43)
--- NOTE | 2020-05-12 14:45 | RAD ---
EXAM DESCRIPTION: Knee,Right 2 views x-ray CLINICAL HISTORY: 75 yearsMale, TKA COMPARISON: 10/17/2019 IMPRESSION: Operative changes of a right total hip arthroplasty. Components appear in excellent alignment, with no complicating features. Postoperative gas in the soft tissues. No acute fracture. Electronically signed by: Steve Walls MD 05/12/2020 2:44 PM CDT [facility]
--- NOTE | 2020-05-12 15:01 | RAD ---
EXAM DESCRIPTION: Knee,Right 2 views x-ray CLINICAL HISTORY: 75 yearsMale, TKA COMPARISON: 10/17/2019 IMPRESSION: Operative changes of a right total hip arthroplasty. Components appear in excellent alignment, with no complicating features. Postoperative gas in the soft tissues. No acute fracture. Electronically signed by: Steve Walls MD 05/12/2020 2:44 PM CDT [facility]
--- NOTE | 2020-05-12 15:01 | RAD ---
EXAM DESCRIPTION: Knee,Right 2 views x-ray CLINICAL HISTORY: 75 yearsMale, TKA COMPARISON: 10/17/2019 IMPRESSION: Operative changes of a right total hip arthroplasty. Components appear in excellent alignment, with no complicating features. Postoperative gas in the soft tissues. No acute fracture. Electronically signed by: Steve Walls MD 05/12/2020 2:44 PM CDT [id number]
[2020-05-12] MEDS: ceFAZolin SODIUM 2 GM in SODIUM CHLORIDE 0.9% 100ML 100 ML IVPB SCH (16:23)
[2020-05-12] MEDS: CELECOXIB 100 MG CAP PO SCH (16:24)
[2020-05-12] MEDS: VANCOMYCIN HCL INJ 1,000 MG in SODIUM CHLORIDE 0.9% 250ML 250 ML IVPB SCH (17:54)
[2020-05-12] MEDS ORDERED: DOCUSATE CALCIUM 240 MG CAP ONE (19:21)
[2020-05-12] MEDS ORDERED: ENOXAPARIN SODIUM 30 MG/0.3 ML SYG SUBCU ONE (19:21)
[2020-05-12] MEDS: DOCUSATE CALCIUM 240 MG CAP PO SCH (20:05)
[2020-05-12] MEDS ORDERED: TEMAZEPAM 15 MG CAP ONE (20:15)
[2020-05-12] MEDS: TEMAZEPAM 15 MG CAP PO PRN ×2 (22:14→23:16)
[2020-05-12] MEDS: ENOXAPARIN SODIUM 30 MG/0.3 ML SYG SUBCU SCH (22:14)
[2020-05-13] MEDS: VANCOMYCIN HCL INJ 1,000 MG in SODIUM CHLORIDE 0.9% 250ML 250 ML IVPB SCH ×2 (05:42→16:32)
[2020-05-13] MEDS: CELECOXIB 100 MG CAP PO SCH ×2 (08:26→15:43)
[2020-05-13] MEDS: MAGNESIUM OXIDE 400 MG TAB PO SCH (08:26)
[2020-05-13] MEDS: ceFAZolin SODIUM 2 GM in SODIUM CHLORIDE 0.9% 100ML 100 ML IVPB SCH ×5 (08:26→23:58)
--- NOTE | 2020-05-13 08:27 | CONS ---
SUPERVISING PHYSICIAN: Karlo Strange MD REASON FOR CONSULTATION: Postoperative medical management. HISTORY OF PRESENT ILLNESS: Mr. Fernandez is a 75 year-old male patient who had a total knee done over 20 years previously. He had been having some difficulty with the knee and it was found the needed revision and he was admitted today for elective revision of the total knee by Dr. Pedro Negrete. He had no intraoperative complications and seeing him in the postoperative state. I was asked to see the patient in medical consultation and help manage with his chronic illnesses. He was found to be in stable condition, PAST MEDICAL HISTORY: 1. Hypertension. 2. Previous skin cancer removed from his ear. PAST SURGICAL HISTORY: 1. Bilateral knee replacement. 2. Lumbar spine surgery. 3. Tonsillectomy at age 4. 4. Bilateral carpal tunnel release. CURRENT MEDICATIONS: 1. Temazepam 30 mg at bedtime. 2. Potassium chloride 8 mEq daily. 3. Meloxicam 15 mg daily. 4. Advil 200 mg daily. 5. Diltiazem 240 mg daily. 6. Tekturna 150 mg daily. 7. Tylenol as needed. ALLERGIES: No known drug allergies. FAMILY HISTORY: Noncontributory. SOCIAL HISTORY: The patient is a retired [employer] teacher. He lives in [place]. He has no history of smoking, does not drink alcohol. He is . REVIEW OF SYSTEMS: CONSTITUTIONAL: Denies general malaise, fevers, chills, unintentional weight loss. HEENT: Negative for headaches. vision changes, sore throat. nasal congestion, earaches. CHEST: Denies shortness of breath, wheezing or coughing. HEART: Denies chest pain, palpitations, tachycardia or syncopal episodes. ABDOMEN: Denies nausea, vomiting, diarrhea or constipation, abdominal pains. GENITOURINARY: Denies dysuria, hematuria or polyuria. MUSCULOSKELETAL: As noted in history of present illness. SKIN: Denies lesions, rashes, moles or unexplained changes. NEUROLOGIC: Denies ataxia, seizures, vision changes or headaches or syncopal episodes. HEMATOLOGICAL: Denies unexplained bleeding, easy bruising or transfusion reactions. PHYSICAL EXAMINATION: VITAL SIGNS: Temperature 98.7, pulse 75, blood pressure 134/75, respirations 18, oxygen saturation 95% on room air. GENERAL: The patient is resting comfortably. He is alert. HEENT: Tympanic membranes clear bilaterally. Oropharynx pink, moist without lesions. NECK: Supple, non-tender, full range of motion. No jugular venous distention. CHEST: Clear to auscultation bilaterally without rhonchi, rales, or wheezes. HEART: Regular rate and rhythm without murmurs, rubs, or gallops. ABDOMEN: Soft, non-tender, positive bowel sounds. EXTREMITIES: Right leg has a bandage in place. Distal pulses are strong. Capillary refill brisk. NEUROLOGIC: He is alert and oriented x3. Cranial nerves II through XII are grossly intact. SKIN: Warm, pink and dry. LABORATORY: Postoperative hemoglobin and hematocrit is pending. RADIOLOGY: Please see postoperative studies. IMPRESSION: 1. Revision of total right knee by orthopedic surgeon, Dr. Pedro Negrete. postoperative day #0. 2. Hypertension. PLAN: We will follow the patient postoperative as he continues with physical therapy and rehabilitation efforts. I talked to Dr. Negrete and the plan is if he does well in the morning, he may be able to go home tomorrow. He will have prophylaxis per protocol. We will continue his him home medications as appropriate to care once those have been updated and verified. Further management will be with Dr. Negrete and physical therapy. Until he can transition to outpatient management, we will continue to monitor him and treat as needed #[id number] [facility]
[2020-05-13] MEDS: ENOXAPARIN SODIUM 30 MG/0.3 ML SYG SUBCU SCH ×2 (10:56→22:21)
[2020-05-13] MEDS: DOCUSATE CALCIUM 240 MG CAP PO SCH ×2 (10:56→21:53)
--- NOTE | 2020-05-13 11:05 | OP ---
DATE OF PROCEDURE: 05/12/20 PREOPERATIVE DIAGNOSIS: 1. Failed right total knee arthroplasty. POSTOPERATIVE DIAGNOSIS: 1. Failed right total knee arthroplasty. PROCEDURE: 1. Revision arthroplasty. SURGEON: Pedro Negrete MD. COUNTY JUDGE: Pete Gayle CST, SA-C. ANESTHESIA: General anesthesia. COMPLICATIONS: None. FINDINGS: 1. Severe wear of the polyethylene. 2. Severe hypertrophic synovitis. 3. Large effusion. 4. Grossly loose patellar component. 5. No obvious loosening or lysis around the femoral or tibial components. INDICATION: Mr. Fernandez has a history of pain that has been getting progressively worse. He had previously had an intact, functioning knee and he had been worked up for infection. There has been no evidence of infection. We discussed options and discussed the possibility of either a polyethylene exchange or a full revision dependent on what was found at the time of the surgery. Because of the findings at the time of surgery, I told him that the decision would have to be made definitively intraoperatively. After discussing the risks, benefits and alternatives to operative therapy, he gave informed consent for revision. PROCEDURE: The patient was brought to the Operating Room and placed in supine position. General anesthesia was induced and the patient's leg was sterilely prepped and draped. Following prepping and draping, an incision was made in line with his previous scar. Dissection was carried down to the prosthesis and upon entering the joint, a very large amount of straw-colored fluid was released. Cultures were taken of that. There was noted severe hypertrophic synovitis which was dark brown in color. Complete synovectomy was performed. The polyethylene was removed and there was noted to be severe wear with almost complete loss on the posterior medial aspect. Following that, the wound was very thoroughly irrigated. There were particles of polyethylene that were meticulously removed. The patella was examined and just with light probing, the patellar component fell off the patella. The patellar surface was thoroughly cleared of soft tissue and any visible remaining cement. The patella was then prepared for cementation. The patellar component was measured and because of some bone loss, especially in the lateral 2/3 of the patella, I did have to use a smaller patellar button than what had previously been placed. There was only a very thin rim of patella in its most lateral portion. That said, there was good bone contact in the area where I was able to fit the patella. Excess cement was removed from there and we allowed that cement to cure. Because of the stability of the prosthesis and other findings, I felt that only a polyethylene exchange was indicated at this time. A new polyethylene liner measuring 12 mm was impacted. The locking mechanism was inserted. The knee was taken through a range of motion and found to be stable. There was good patellar tracking. The wound was very thoroughly irrigated and closed with PDS suture in the arthrotomy followed by a combination of running and interrupted subcuticular stitches. Sterile dressing was placed. The patient was awoken from anesthesia and taken to Recovery. POSTOPERATIVE PLAN: The patient will be weight-bearing as tolerated on postoperative day 1. We will await his cultures and the plan any antibiotic therapy based on that. #[id number] [facility]
[2020-05-13] MEDS ORDERED: DILTIAZEM HCL COATED BEADS 240 MG PO SCH (14:30)
[2020-05-13] MEDS ORDERED: TEMAZEPAM 15 MG CAP ONE (19:20)
[2020-05-13] MEDS ORDERED: NON-FORMULARY MEDICATION 1 EA MIS (Temazepam [Temazepam] 30 MG) PO SCH (21:00)
[2020-05-13] MEDS ORDERED: TEMAZEPAM 15 MG CAP PO SCH (21:00)
[2020-05-14] MEDS: VANCOMYCIN HCL INJ 1,000 MG in SODIUM CHLORIDE 0.9% 250ML 250 ML IVPB SCH (05:33)
[2020-05-14] MEDS: ceFAZolin SODIUM 2 GM in SODIUM CHLORIDE 0.9% 100ML 100 ML IVPB SCH (07:48)
[2020-05-14] MEDS: CELECOXIB 100 MG CAP PO SCH (07:58)
[2020-05-14] MEDS: MAGNESIUM OXIDE 400 MG TAB PO SCH (08:00)
--- NOTE | 2020-05-14 08:05 | PN ---
SUPERVISING PHYSICIAN: Susan Strange MD DATE: 05/13/20 SUBJECTIVE: The patient is doing well. He is not having any fevers. He has had no complaints. His pain has been well controlled. He has been doing well with physical therapy. OBJECTIVE: VITAL SIGNS: Temperature 98.8, pulse 60, blood pressure 163/73, saturation 97% on room air. GENERAL: The patient is resting comfortably, sitting in a bedside chair. He is alert. CHEST: Lungs are clear to auscultation. HEART: Regular rate and rhythm. ABDOMEN: Soft, nontender. Positive bowel sounds. EXTREMITIES: Right knee still has an Rey bandage in place. Distal pulses are strong. Capillary refill is brisk. NEUROLOGIC: Alert and oriented times three. LABORATORY: Postoperative hemoglobin 12.9, hematocrit 37.4. ASSESSMENT: 1. Failed right knee arthroplasty hardware with revision of right total knee arthroplasty by orthopedic surgeon, Dr. Pedro Negrete, postoperative day #1. 2. Hypertension. PLAN: We will continue with current plan of care with another 24 hours of IV antibiotics per Dr. Negrete's request. Hopefully, we will be able to discharge tomorrow. Cultures so far just shows preliminary of gram stain negative, no bacteria seen. Final results are still pending. He is again started back on his home medication. His pain has been well controlled. Hopefully, we will be able to discharge tomorrow. Until then, we will continue to monitor and treat as needed. [facility][id number] [facility]
[2020-05-14] MEDS ORDERED: SODIUM CHLORIDE 0.9% (FLUSH) 10 ML SYG IV SCH (09:00)
[2020-05-14] MEDS ORDERED: ALISKIREN 150 MG PO SCH (09:00)
[2020-05-14] MEDS: ENOXAPARIN SODIUM 30 MG/0.3 ML SYG SUBCU SCH (10:56)
[2020-05-14 10:59] VITALS: BP 142/63; TEMP 98; O2SAT 96
--- NOTE | 2020-05-14 11:16 | PN ---
DATE: 05/14/20 SUBJECTIVE: Mr. Fernandez is doing well and not having much pain at all. He has been up walking. OBJECTIVE: Afebrile. Vital signs stable. Wound is clean. There are no signs or symptoms of infection. ASSESSMENT: Status post revision arthroplasty. PLAN: The plan at this point is for discharge today. [facility][id number] [facility]
--- NOTE | 2020-05-14 11:27 | PN ---
DATE: 05/13/20 SUBJECTIVE: He is doing well and is working with his range of motion. OBJECTIVE: Afebrile. Vital signs stable. Dressing is clean, dry and intact. ASSESSMENT: Status post revision knee arthroplasty. PLAN: The plan at this point is for him to continue with weightbearing as tolerated. #[id number] [facility]
--- NOTE | 2020-05-14 13:38 | DS ---
SUPERVISING PHYSICIAN: Susan Strange MD DISCHARGE DIAGNOSIS: 1. Failed right knee arthroplasty hardware with revision of right total knee arthroplasty by orthopedic surgeon, Dr. Pedro Negrete, postoperative day #2. 2. Hypertension. HISTORY OF PRESENT ILLNESS: This is a 75-year-old male patient who had a total knee done over 20 years ago. He had been having some difficulty with the knee and it was found he needed revision. He was admitted on the day of surgical revision. He had no intraoperative complications and he was admitted to the Medical/Surgical Floor in congestion postoperatively. HOSPITAL COURSE: The patient was continued on Dr. Negrete's knee orders and his rehab and physical therapy was initiated. He was also put on DVT prophylaxis per protocol as well as his home medications were restarted. He has improved to the point that he can be discharged home today in stable condition. He was actually kept in the hospital for one additional day for IV antibiotics at Dr. Negrete's request. He will be discharged in stable condition. LABORATORY: Postoperative hemoglobin 12.9, hematocrit 37.4. UDS was negative except for benzodiazepines. RADIOLOGY: X-rays are per the EMR. DISCHARGE PLAN: The patient will be discharged home in stable condition. He is to resume his previous diet and increase his activity as per physical therapy. He will have outpatient physical therapy and rehab at [facility] in [place]. In addition to his routine medications, I will also send him home on cyclobenzaprine, 10 days of Xarelto and hydrocodone. The hydrocodone will be prescribed by Dr. Negrete. He is to followup with Dr. Negrete as previously recommended. He is to return to the hospital or followup with Dr. Negrete for any problems or complications. DISCHARGE MEDICATIONS: 1. Potassium chloride. 2. Mobic. 3. Diltiazem. 4. Tekturna. 5. Temazepam. 6. Ibuprofen. 7. Acetaminophen. 5. Cyclobenzaprine. 6. Hydrocodone. 7. Xarelto. #[id number] [facility]
[2020-05-15] MEDS ORDERED: BISACODYL SUPPOSITORY 10 MG PR ONE (21:00)
[2020-05-15] MEDS ORDERED: MAGNESIUM HYDROXIDE 30 ML UD PO ONE (21:00)
== END 2020-05-14 11:05 | disposition home or self-care (01) | DRG 468 ==
LOC: AMB 05:31 → MS 11:07
PROVIDERS: ADMIT Orthopaedic Surgery; ATTEND Nurse Practitioner Acute Care
PROC: 0SPC0JZ Removal of Synthetic Substitute from Right Knee Joint, Open Approach (ICD-10-PCS; principal; 2020-05-12 07:00)
PROC: 0SRC0JA Replacement of Right Knee Joint with Synthetic Substitute, Uncemented, Open Approach (ICD-10-PCS; 2020-05-12 07:00)
DX: T84.032A Mechanical loosening of internal right knee prosthetic joint, initial encounter (principal); T84.062A Wear of articular bearing surface of internal prosthetic right knee joint, initial encounter; I10 Essential (primary) hypertension; Z96.653 Presence of artificial knee joint, bilateral; Z79.1 Long term (current) use of non-steroidal anti-inflammatories (NSAID); Z79.899 Other long term (current) drug therapy; Y79.2 Prosthetic and other implants, materials and accessory orthopedic devices associated with adverse incidents; Y83.4 Other reconstructive surgery as the cause of abnormal reaction of the patient, or of later complication, without mention of misadventure at the time of the procedure; Y92.9 Unspecified place or not applicable

== ENCOUNTER 2020-05-27 05:32 | Observation (INO) | payer OTHER ==
[2020-05-27] MEDS ORDERED: ONDANSETRON INJ 4 MG/2 ML VIAL ONE (07:00)
[2020-05-27] MEDS ORDERED: LIDOCAINE 1% 10 ML VIAL INJ ONE (07:00)
[2020-05-27] MEDS ORDERED: PROPOFOL 200 MG/20 ML VIAL IV ONE (07:00)
[2020-05-27] MEDS ORDERED: DEXAMETHASONE INJ 10 MG/ML VIAL ONE (07:00)
[2020-05-27] MEDS ORDERED: SODIUM CHLORIDE 0.9% 250ML 250 ML ONE (07:01)
[2020-05-27] MEDS ORDERED: LACTATED RINGERS 1,000 ML ONE ×2 (07:01→11:56)
[2020-05-27] MEDS ORDERED: ceFAZolin SODIUM 1 GM VIAL ONE ×3 (07:01→09:17)
[2020-05-27] MEDS ORDERED: SODIUM CHLORIDE 0.9% (FLUSH) 10 ML SYG ONE (07:01)
[2020-05-27] MEDS ORDERED: VANCOMYCIN HCL INJ 1,000 MG VIAL IVPB ONE ×5 (07:01→09:43)
[2020-05-27] MEDS ORDERED: SODIUM CHL 0.9% 100ML MINI-BAG 100 ML IVPB ONE (07:01)
[2020-05-27] MEDS ORDERED: BUPIVACAINE 0.5% 30 ML VIAL INJ ONE ×4 (09:16→10:40)
[2020-05-27] MEDS ORDERED: BUPIVACAINE LIPOSOME 13.3 MG/ML VIAL INJ ONE ×3 (09:16→09:43)
[2020-05-27] MEDS ORDERED: MIDAZOLAM INJ 2 MG/2 ML VIAL ONE (09:25)
[2020-05-27] MEDS ORDERED: fentaNYL CITRATE INJ 50 MCG/ML 2 ML AMP ONE ×2 (09:26→12:02)
[2020-05-27] MEDS ORDERED: ceFAZolin SODIUM 1 GM VIAL IRRIG ONE ×2 (09:33→09:43)
[2020-05-27] MEDS ORDERED: traMADol HCL 50 MG TAB PO PRN (11:14)
[2020-05-27] MEDS ORDERED: MAGNESIUM HYDROXIDE 30 ML UD PO PRN (11:14)
[2020-05-27] MEDS ORDERED: ALUMINUM & MAGNESIUM HYDROXIDE 30 ML UD PO PRN (11:14)
[2020-05-27] MEDS ORDERED: BENZOCAINE-MENTH LOZ (CEPACOL) 1 EA LOZ MT PRN (11:14)
[2020-05-27] MEDS ORDERED: PROMETHAZINE HCL INJ 25 MG in SODIUM CHLORIDE 0.9% 50ML 50 ML IVPB PRN (11:14)
[2020-05-27] MEDS ORDERED: BISACODYL SUPPOSITORY 10 MG PR PRN (11:14)
[2020-05-27] MEDS ORDERED: ZOLPIDEM TARTRATE 5 MG TAB PO PRN (11:14)
[2020-05-27] MEDS ORDERED: TRANEXAMIC ACID INJ 1,000 MG in SODIUM CHLORIDE 0.9% 100ML 100 ML IVPB ONE (11:14)
[2020-05-27] MEDS ORDERED: HYDROcodone 5MG/APAP 325MG 1 EA TAB PO PRN (11:14)
[2020-05-27] MEDS ORDERED: SODIUM CHLORIDE 0.9% (FLUSH) 10 ML SYG IV PRN (11:14)
[2020-05-27] MEDS ORDERED: PROMETHAZINE HCL INJ 12.5 MG in SODIUM CHLORIDE 0.9% 50ML 50 ML IVPB PRN (11:14)
[2020-05-27] MEDS ORDERED: ONDANSETRON INJ 4 MG/2 ML VIAL IV PRN (11:14)
[2020-05-27] MEDS ORDERED: NALOXONE HCL INJ 0.4 MG/ML VIAL IV PRN (11:14)
[2020-05-27] MEDS ORDERED: DEX 5% W/NACL 0.45% 1000ML 1,000 ML IVS PRN (11:14)
[2020-05-27] MEDS ORDERED: ACETAMINOPHEN 500 MG TAB PO PRN (11:14)
[2020-05-27] MEDS ORDERED: MORPHINE SULFATE INJ 10 MG/ML VIAL IM PRN (11:14)
[2020-05-27] MEDS ORDERED: TEMAZEPAM 15 MG CAP PO PRN (11:14)
[2020-05-27] MEDS ORDERED: ACETAMINOPHEN 325 MG TAB PO PRN (11:14)
[2020-05-27] MEDS ORDERED: MORPHINE PCA 1 MG/ML 100 ML BAG IVPB SCH (11:30)
[2020-05-27] MEDS ORDERED: IV SET AND CAP CHANGE INJ INJ SCH (11:30)
[2020-05-27] MEDS ORDERED: fentaNYL CITRATE INJ 50 MCG/ML 2 ML AMP IV ONE ×4 (12:05→12:42)
[2020-05-27] MEDS ORDERED: CADD ADMIN SET 1 EA PKG INJ ONE (12:09)
[2020-05-27] MEDS ORDERED: MORPHINE PCA 1 MG/ML 100 ML BAG IVPB ONE (12:10)
[2020-05-27] MEDS ORDERED: KETOROLAC TROMETHAMINE INJ 30 MG/ML VIAL ONE (12:42)
[2020-05-27] MEDS ORDERED: KETOROLAC TROMETHAMINE INJ 30 MG/ML VIAL IV ONE (12:45)
[2020-05-27] MEDS: HYDROcodone 10MG/APAP 325MG 1 EA TAB PO PRN ×3 (14:19→22:36)
[2020-05-27] MEDS: CYCLOBENZAPRINE HCL 10 MG TAB PO PRN (14:20)
[2020-05-27] MEDS: ceFAZolin SODIUM 2 GM in SODIUM CHL 0.9% 50ML MIN-BAG+ 50 ML IVPB SCH ×2 (16:30→23:17)
[2020-05-27] MEDS: CELECOXIB 100 MG CAP PO SCH (16:30)
[2020-05-27] MEDS: VANCOMYCIN HCL INJ 1,000 MG in SODIUM CHLORIDE 0.9% 250ML 250 ML IVPB SCH (18:26)
[2020-05-27] MEDS: DOCUSATE CALCIUM 240 MG CAP PO SCH (22:36)
[2020-05-27] MEDS ORDERED: ENOXAPARIN SODIUM 30 MG/0.3 ML SYG SUBCU SCH (23:00)
[2020-05-28] MEDS: VANCOMYCIN HCL INJ 1,000 MG in SODIUM CHLORIDE 0.9% 250ML 250 ML IVPB SCH (05:44)
[2020-05-28] MEDS ORDERED: MAGNESIUM OXIDE 400 MG TAB ONE (06:53)
[2020-05-28] MEDS: CELECOXIB 100 MG CAP PO SCH ×2 (07:39→16:10)
[2020-05-28] MEDS: ceFAZolin SODIUM 2 GM in SODIUM CHL 0.9% 50ML MIN-BAG+ 50 ML IVPB SCH (07:39)
[2020-05-28] MEDS: HYDROcodone 10MG/APAP 325MG 1 EA TAB PO PRN ×4 (07:52→22:24)
--- NOTE | 2020-05-28 09:09 | PN ---
DATE: 05/28/20 SUBJECTIVE: Mr. Fernandez is doing well and his pain is well controlled right now. OBJECTIVE: Afebrile. Vital signs stable. Dressing is clean, dry and intact. ASSESSMENT: Status post incision and draining of seroma. PLAN: The plan at this point is for him to begin weightbearing as tolerated today. [facility][id number] [facility]
[2020-05-28] MEDS: ALISKIREN 150 MG PO SCH (09:31)
[2020-05-28] MEDS: MAGNESIUM OXIDE 400 MG TAB PO SCH (09:32)
[2020-05-28] MEDS: CYCLOBENZAPRINE HCL 10 MG TAB PO PRN ×2 (10:35→20:39)
[2020-05-28] MEDS: MORPHINE SULFATE INJ 10 MG/ML VIAL IV PRN ×3 (11:24→14:22)
[2020-05-28] MEDS ORDERED: RIVAROXABAN 15 MG TAB PO SCH (12:00)
[2020-05-28] MEDS ORDERED: CYCLOBENZAPRINE HCL 10 MG TAB ONE (19:25)
[2020-05-28] MEDS ORDERED: HYDROcodone 10MG/APAP 325MG 1 EA TAB ONE (19:25)
[2020-05-28] MEDS ORDERED: TEMAZEPAM 15 MG CAP ONE (19:25)
[2020-05-28] MEDS: DOCUSATE CALCIUM 240 MG CAP PO SCH (20:41)
[2020-05-28] MEDS ORDERED: TEMAZEPAM 15 MG CAP PO SCH (21:00)
[2020-05-29] MEDS: MAGNESIUM OXIDE 400 MG TAB PO SCH (08:25)
[2020-05-29] MEDS: CELECOXIB 100 MG CAP PO SCH (08:26)
[2020-05-29] MEDS: HYDROcodone 10MG/APAP 325MG 1 EA TAB PO PRN (08:26)
[2020-05-29] MEDS: ALISKIREN 150 MG PO SCH (08:31)
[2020-05-29] MEDS ORDERED: SODIUM CHLORIDE 0.9% (FLUSH) 10 ML SYG IV SCH (09:00)
--- NOTE | 2020-05-29 10:23 | OP ---
DATE OF PROCEDURE: 05/27/20 PREOPERATIVE DIAGNOSIS: 1. Seroma of the right knee. POSTOPERATIVE DIAGNOSIS: 1. Seroma of the right knee. PROCEDURE: 1. Incision and drainage of seroma. SURGEON: Pedro Negrete MD DAIRY NUTRITION CONSULTANT: Pete Gayle CST, SA-C ANESTHESIA: General anesthesia. COMPLICATIONS: None. FINDINGS: Seroma superficial to the joint with no evidence of infection in the fluid taken from the procedure at the time of surgery. INDICATION: Mr. Fernandez had a previous total knee arthroplasty, from which he has done well. He has had drainage from the most superior portion of the incision. On physical examination, it looked as though he had some fluid between the subcutaneous tissues and the patellar region. Because of that, I suggested that we perform an I&D. After discussing the risks, benefits and alternatives to that, he gave informed consent for that. PROCEDURE: The patient was brought to the Operating Room and placed in supine position. General anesthesia was induced. The patient's leg was sterilely prepped and draped. An incision was made using the previous incision and upon opening the wound, some fluid was taken immediately for lab analysis. There was very rare white blood cell and no bacteria identified. There were numerous red blood cells. Given that fact, I felt that it was a seroma present. I fully opened the wound and drained the seroma. There was a very small communication with the joint and, therefore, I opened the capsule. The entire knee was very thoroughly irrigated. Once irrigation had been done, the tissue that needed to be debrided was. All tissue remaining appeared to viable. Subsequent to that, the knee was very thoroughly drained and closure was performed with complete reapproximate of the capsule followed by the subcutaneous tissues. A combination of interrupted and running subcuticular stitches were placed. The wound was dressed. The patient was awoken from anesthesia and taken to Recovery. POSTOPERATIVE PLAN: He will be weightbearing as tolerated, but we are going to admit him for observation. #[id number] [facility]
[2020-05-29 10:30] VITALS: BP 129/67; TEMP 97.6; O2SAT 99
--- NOTE | 2020-05-29 11:07 | PN ---
DATE: 05/29/20 SUBJECTIVE: Mr. Fernandez is doing well and his pain is well controlled. OBJECTIVE: He is having no drainage from his wound. He is afebrile. Vital signs stable. ASSESSMENT: Status post incision and drainage of seroma. PLAN: The plan at this point is for him to continue with compressive dressing. He will hold off on therapy until next week. He will see me on Monday and he has been given my phone number should he have any issues over the weekend. #[id number] [facility]
[2020-05-30] MEDS ORDERED: BISACODYL SUPPOSITORY 10 MG PR ONE (21:00)
[2020-05-30] MEDS ORDERED: MAGNESIUM HYDROXIDE 30 ML UD PO ONE (21:00)
== END 2020-05-29 11:03 | disposition home or self-care (01) ==
LOC: AMB 05:32 → OBSVTOIN 13:20 → MS 13:20 → INTOOBSV 13:20
PROVIDERS: ADMIT Orthopaedic Surgery; ATTEND Orthopaedic Surgery
DX: M96.842 Postprocedural seroma of a musculoskeletal structure following a musculoskeletal system procedure (principal); M25.461 Effusion, right knee; I10 Essential (primary) hypertension; Z96.651 Presence of right artificial knee joint; Z66 Do not resuscitate; Z79.1 Long term (current) use of non-steroidal anti-inflammatories (NSAID); Z79.899 Other long term (current) drug therapy
CPT/HCPCS: 96366; 96367; 96365; 96375; 96376; 96372; J0690 ×7; J1650; J3010 ×6; J1885 ×2; J2270 ×5; J2405; J3490 ×3; J7050 ×7; J3370 ×6; J1100; A4216 ×2; J2250; J7120 ×2; 89051; 85014; 85018; 36415; 87070; 87205; 94760 ×3; 94762; 97116; 97162; G0378; 27301; 01320; 64447

== ENCOUNTER 2020-06-01 14:29 | Observation (INO) | payer OTHER ==
[2020-06-01] MEDS ORDERED: SODIUM CHLORIDE 0.9% (FLUSH) 10 ML SYG IV PRN ×2 (14:48→18:22)
--- NOTE | 2020-06-01 14:49 | ED.PDOC ---
History of Present Illness - General Time Seen by Provider: 06/01/20 14:48 Source: patient - History of Present Illness Initial Comments: 75-year-old male with past medical history of hypertension who was sent from Dr. Park's clinic for chief complaint of right knee pain and shortness of breath. Patient is status post right knee revision arthroplasty on 05/12 and status post right knee washout on 05/27. He reports he was discharged from the hospital on 05/28 following the washout. He states that he has been having gradually worsening pain in the right knee since then. Describes as constant sharp pain primarily to the upper aspect of the knee with radiation throughout the knee, 4/10 in severity at rest, worsens sharply and becomes severe with bearing weight and range of motion of the right knee. He has been taking hydrocodone at home with moderate pain control. He additionally reports worsening shortness of breath for the past 4 days. He was taking anticoagulation up until 5 days ago when it was discontinued. The patient was seen in the clinic and noted to have low blood pressure 80s/40s and they were unable to place an IV so patient was sent to the ED. He did take his blood pressure medication this morning. He denies any chest pain, fevers, chills, abdominal pain, nausea/vomiting/diarrhea. He does report frequent urination. He reports very poor appetite for the past week with poor p.o. intake. Allergies/Adverse Reactions: Allergies NO KNOWN ALLERGY Allergy (Verified 06/01/20 14:50) Home Medications: Ambulatory Orders Aliskiren [Tekturna] 150 mg PO DAILY 12/02/14 Diltiazem HCl Coated Beads [Diltiazem Cd] 240 mg PO DAILY 12/02/14 Meloxicam [Mobic] 15 mg PO DAILY 12/02/14 Temazepam 30 mg PO BEDTIME 07/12/17 Acetaminophen [Tylenol] 1 - 2 tablet PO Q6HR PRN 05/07/20 Ibuprofen [Advil] 200 mg PO PRN PRN 05/07/20 HYDROcodone 10MG/APAP 325MG [Atkinson 10325] 1 ea PO Q4H PRN tab 05/14/20 Aspirin [Aspirin 81 Low Dose] 81 mg PO DAILY #7 chw 05/29/20 Review of Systems - Review of Systems Review of Systems: 06/01/20 15:11 as per HPI All other Systems: Reviewed and Negative Past Medical History (General) - Patient Medical History Hx Seizures: No Hx Stroke: No Hx Dementia: No Hx Asthma: No Hx of COPD: No Hx Cardiac Disorders: No Hx Congestive Heart Failure: No Hx Pacemaker: No Hx Hypertension: Yes Hx Thyroid Disease: No Hx Diabetes: No Hx Gastroesophageal Reflux: No Hx Renal Disease: No Hx Cancer: No Hx of HIV: No Hx Hepatitis C: No Hx MRSA: No MRSA Source:: Wound - Vaccination History Hx Tetanus, Diphtheria Vaccination: No Hx Influenza Vaccination: Yes Hx Pneumococcal Vaccination: Yes - Social History Hx Tobacco Use: No Hx Chewing Tobacco Use: No Hx Alcohol Use: No Hx Substance Use: No Hx Substance Use Treatment: No Hx Depression: No Hx Physical Abuse: No Hx Emotional Abuse: No Family Medical History - Family History Mother Family History: Unknown Grandparents Family History: Unknown Hx Family Cancer: Yes Physical Exam - Physical Exam General Appearance: Alert, Comfortable, No apparent distress Eye Exam: bilateral normal Ears, Nose, Throat: normal ENT inspection, normal pharynx Neck: non-tender, full range of motion, supple, normal inspection Respiratory: no respiratory distress, no accessory muscle use, rales - Faint bibasilar w/o rhonchi or wheezing Cardiovascular/Chest: normal peripheral pulses, regular rate, rhythm, no edema, no gallop, no JVD, no murmur Peripheral Pulses: radial,right: 2+, radial,left: 2+ Gastrointestinal/Abdominal: non tender, soft, no organomegaly Back Exam: normal inspection Extremity: no pedal edema, no calf tenderness, swelling - Marked swelling to the right knee, moderate diffuse tenderness to palpation, worse at the superior aspect of the knee. Range of motion is markedly limited due to pain, other - The right knee appears moderately swollen and warm without erythema. The right knee incision appears clean/dry/intact without drainage. 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 The knee appears like a normal postop knee, doubtful of infection. Patient is without fever and otherwise stable upon ED arrival. Suspect he is dehydrated from poor appetite. Consider also joint infection, sepsis, ACS, CHF, Covid, pneumonia, other -Obtain blood work, cardiac work-up, lactate, D-dimer, COVID-19 swab -Place peripheral IV, 1 L normal saline bolus 06/01/20 18:02 -Patient remained stable, reports feeling markedly improved after 1 L normal saline bolus in the ED. His blood pressure is improved to 110s/80s, normal sinus rhythm, afebrile. -Labs reveal normal serum WBC, strep test is positive. Covid/flu negative. D- dimer was elevated to 1900 so Doppler ultrasound imaging of the bilateral lower extremities and CTA of the chest was done. No evidence of DVT or PE noted. There was some evidence of air trapping on the CT of the chest which is indicative of asthma versus bronchitis. Otherwise his labs are consistent with prerenal acute kidney injury as well as hyponatremia consistent with dehydration. He has normocytic anemia slightly decreased from last week - H/H 10.04/13 - no ongoing blood loss, suspect 2/2 postop recovery. Discussed all the findings with the patient and his as well as with Dr. Negrete. Advised hospital admission for IV fluids. Patient is agreeable. We will consult with the hospitalist. 06/01/20 18:07 -Javier Fajardo accepts pt to his service for acute kidney injury, dehydration, strep pharyngitis. Will give patient Bicillin 1,200,000 units IM to treat the strep in the ED. Dr. Negrete would like the patient to be continued on doxycycline for postoperative prophylaxis. Chalino Hartley MD Billing #[id number] 06/01/20 14:48 Telemetry .ONCE Sodium Chloride 0.9% (Flush) [Saline Flush Syringe] 10 ml IV PRN PRN 06/01/20 15:00 EKG STAT 06/02/20 09:00 Pulse Ox Daily Laboratory Results - last 24 hr 06/01/20 06/01/20 06/01/20 15:10 15:10 15:10 WBC 10.6 RBC 3.46 L Hgb 10.8 L Hct 31.3 L MCV 90.5 MCH 31.3 H MCHC 34.5 RDW 15.1 H Plt Count 268 MPV 7.2 L Absolute Neuts (auto) 8.60 H Absolute Lymphs (auto) 0.90 L Absolute Monos (auto) 0.90 H Absolute Eos (auto) 0.10 Absolute Basos (auto) 0.10 Neutrophils % 81.4 H Lymphocytes % 8.7 L Monocytes % 8.9 Eosinophils % 0.5 L Basophils % 0.5 PT 11.4 H INR 1.15 PTT (SP) 27.8 D-Dimer, Quantitative 1910.0 H* Sodium 130 L Potassium 4.9 Chloride 93 L Carbon Dioxide 26 Anion Gap 15.9 BUN 26 H Creatinine 1.46 H BUN/Creatinine Ratio 17.8 Random Glucose 133 H Serum Osmolality 267.5 L Lactic Acid Calcium 8.9 Total Bilirubin 0.9 AST 14 ALT 10 Alkaline Phosphatase 58 Troponin I B-Natriuretic Peptide 25.6 Serum Total Protein 7.5 Albumin 3.7 Globulin 3.8 H Albumin/Globulin Ratio 1.0 L Group A Strep Rapid 06/01/20 06/01/20 06/01/20 15:10 15:10 16:12 WBC RBC Hgb Hct MCV MCH MCHC RDW Plt Count MPV Absolute Neuts (auto) Absolute Lymphs (auto) Absolute Monos (auto) Absolute Eos (auto) Absolute Basos (auto) Neutrophils % Lymphocytes % Monocytes % Eosinophils % Basophils % PT INR PTT (SP) D-Dimer, Quantitative Sodium Potassium Chloride Carbon Dioxide Anion Gap BUN Creatinine BUN/Creatinine Ratio Random Glucose Serum Osmolality Lactic Acid 1.4 Calcium Total Bilirubin AST ALT Alkaline Phosphatase Troponin I < 0.02 B-Natriuretic Peptide Serum Total Protein Albumin Globulin Albumin/Globulin Ratio Group A Strep Rapid Positive H - EKG/XRAY/CT EKG: Sinus - Normal sinus rhythm, heart rate 65, no ST elevations noted, no Q waves, [place] normal, intervals otherwise VT interval prolonged 220 ms, normal, compared to 12/02/2014 EKG VT interval prolonged appears new XRAY: chest - no acute processes per my read Departure - Departure Clinical Impression: Strep pharyngitis, Acute kidney injury, Dehydration Time of Disposition: 18:01 Disposition: Admit Patient Condition: Fair Diet: resume usual diet Referrals: Vahe Arias MD [Primary Care Provider] - 1-2 Weeks Home Medications: Ambulatory Orders Aliskiren [Tekturna] 150 mg PO DAILY 12/02/14 Diltiazem HCl Coated Beads [Diltiazem Cd] 240 mg PO DAILY 12/02/14 Meloxicam [Mobic] 15 mg PO DAILY 12/02/14 Temazepam 30 mg PO BEDTIME 07/12/17 Acetaminophen [Tylenol] 1 - 2 tablet PO Q6HR PRN 05/07/20 Ibuprofen [Advil] 200 mg PO PRN PRN 05/07/20 HYDROcodone 10MG/APAP 325MG [Atkinson ] 1 ea PO Q4H PRN tab 05/14/20 Aspirin [Aspirin 81 Low Dose] 81 mg PO DAILY #7 chw 05/29/20 Decision To Admit - Decistion To Admit Decision to Admit Reason: Admit from ER Decision to Admit Date: 06/01/20 Decision to Admit Time: 18:08
--- NOTE | 2020-06-01 15:29 | RAD ---
EXAM: Chest,1 View INDICATION: 75 years Male, dyspnea, post-op patient COMPARISON: 2 views of the chest 07/12/2017 FINDINGS: Single view of the chest was performed on 2 images. Heart size is within normal limits. Subtle linear opacities in the lung bases likely represent atelectasis. No pleural effusion. No pneumothorax. The osseous structures are intact. Unremarkable appearance of the visualized upper abdomen. IMPRESSION: Subtle linear opacities in the lung bases likely represent atelectasis. Otherwise unremarkable appearance of the chest. Electronically signed by: Elvia Carranza MD 06/01/2020 3:27 PM CDT
[2020-06-01] MEDS ORDERED: SODIUM CHLORIDE 0.9% 1000ML 1,000 ML IVS ONE (15:50)
--- NOTE | 2020-06-01 16:42 | US ---
EXAM DESCRIPTION: Venous,Lower Extremity LT (accession [id number]), Venous,Lower Extremity RT (accession [id number]): Ultrasound. CLINICAL HISTORY: s/p R knee surgery, worsening pain/swelling SOB COMPARISON: None Available. TECHNIQUE: Two -dimensional and doppler sonographic evaluation of the deep venous system of the bilateral lower extremities. FINDINGS: Doppler evaluation shows normal color flow and normal phasicity and augmentation of the bilateral common femoral veins, junctions with the bilateral proximal saphenous veins, femoral veins, popliteal veins, greater and lesser saphenous veins, peroneal and posterior tibial veins. These veins showed normal occlusion with transducer pressure. Two-dimensional survey showed no echogenic clot within these veins. IMPRESSION: Duplex ultrasound evaluation of the bilateral lower extremity deep venous systems showing no evidence of thrombosis. Electronically signed by: Pete Gamez MD 06/01/2020 4:40 PM CDT
--- NOTE | 2020-06-01 16:42 | US ---
EXAM DESCRIPTION: Venous,Lower Extremity LT (accession [id number]), Venous,Lower Extremity RT (accession [id number]): Ultrasound. CLINICAL HISTORY: s/p R knee surgery, worsening pain/swelling SOB COMPARISON: None Available. TECHNIQUE: Two -dimensional and doppler sonographic evaluation of the deep venous system of the bilateral lower extremities. FINDINGS: Doppler evaluation shows normal color flow and normal phasicity and augmentation of the bilateral common femoral veins, junctions with the bilateral proximal saphenous veins, femoral veins, popliteal veins, greater and lesser saphenous veins, peroneal and posterior tibial veins. These veins showed normal occlusion with transducer pressure. Two-dimensional survey showed no echogenic clot within these veins. IMPRESSION: Duplex ultrasound evaluation of the bilateral lower extremity deep venous systems showing no evidence of thrombosis. Electronically signed by: Pete Gamez MD 06/01/2020 4:40 PM CDT
--- NOTE | 2020-06-01 17:25 | CT ---
CT CHEST ANGIOGRAPHY WITH IV CONTRAST HISTORY: 75 years Male dyspnea, weakness, post-op R knee patient COMPARISON: Same day chest radiographs. TECHNIQUE: Helical tomographic images of the chest were obtained after the administration of intravenous contrast per facility angiogram protocol. 3-D MIP reconstructions were created. Coronal and sagittal reformatted images were also provided. This exam was performed according to our departmental dose-optimization program, which includes automated exposure control, adjustment of the mA and/or kV according to patient size and/or use of iterative reconstruction technique. FINDINGS: Diagnostic quality: Transient interruption of contrast column via the IVC limits definitive evaluation of subsegmental pulmonary arterial vasculature. Pulmonary arteries: Normal caliber and enhancement. No evidence of a pulmonary embolus within the segmental or larger pulmonary arteries. Lungs and central airways: Scattered subtle geographic groundglass attenuation suggestive of air trapping. No focal consolidation observed. Triangular subpleural 4 mm nodules in the left upper lung (/ and /) are most suggestive of small and pulmonary lymph nodes. No suspicious pulmonary nodule or mass identified. Pleura: No pleural effusion or pleural thickening. Heart/pericardium: Heart size is normal. No evidence of right heart strain. Trace pericardial fluid. Mediastinum/elvis: No mediastinal or hilar mass or lymphadenopathy. Systemic vasculature: There are scattered atherosclerotic changes noted, including involvement of the coronary arteries. Regional surrounding soft tissues: No acute process detected. Bones: Probable subacute healing rib fracture in the posterolateral left rib 8. Scattered degenerative changes are present in the included spine Included abdomen: No acute process detected. IMPRESSION: No evidence of a pulmonary embolus within the segmental or larger pulmonary arteries. Findings suggestive of air trapping throughout the lungs. This is most commonly seen in the setting of small airways disease such as asthma or bronchitis. Electronically signed by: Usama Vizcarra MD 06/01/2020 5:23 PM CDT
[2020-06-01] MEDS ORDERED: PENICILLIN BENZATHINE 1.2 MU 1.2 MU/2 ML SYG IM ONE (18:11)
[2020-06-01] MEDS ORDERED: IV SET AND CAP CHANGE INJ INJ SCH (18:30)
[2020-06-01] MEDS ORDERED: HYDROcodone 5MG/APAP 325MG 1 EA TAB PO PRN (18:37)
[2020-06-01] MEDS ORDERED: levoFLOXacin 500 MG TAB PO ONE (18:38)
--- NOTE | 2020-06-01 19:21 | HP ---
SUPERVISING PHYSICIAN: Vahe Arias M.D. CHIEF COMPLAINT: Low blood pressure. HISTORY OF PRESENT ILLNESS: This is a 75 year-old male patient who came to the Emergency Room with low blood pressure. He saw Dr. Negrete in followup today and was noted to have some low blood pressure. A more extended History of Present Illness is that the patient had a right total knee arthroplasty revision on 05/12/20 and subsequently a seroma incision and drainage back on the 27 of May. Since that time he has had some doxycycline as prophylactic antibiotic. He states he has been hurting and has not really wanted to eat much or drink much. Anyhow, he was actually seen by his primary care physician, Dr. Arias, after he saw Dr. Negrete, and the patient's blood pressure apparently was in the 80s/40s and he was tachycardic. Therefore he came to the Emergency Room. In the Emergency Room he got a liter of fluid. He also tested positive for Strep pharyngitis. He was given a Bicillin injection as well. He also had an elevated D-dimer, so an ultrasound of the lower extremity was done which showed no DVTs. Additionally, he had a CT angiogram of the chest which showed no pulmonary embolism. However, given the dehydration and hypotension, the patient was referred for observational admission. At time of examination, the patient is alert and oriented. He had just urinated and it was pretty concentrated. He was complaining of a little bit of knee pain, otherwise he is in no distress. PAST MEDICAL HISTORY: 1. Hypertension. 2. Previous skin cancer removals. PAST SURGICAL HISTORY: 1. Bilateral knee replacement. 2. Lumbar spine surgery. 3. Tonsillectomy. 4. Bilateral carpal tunnel release. 5. Right knee total arthroplasty revision on the 12 of May and then was taken back to surgery on the 27 of May for incision and drainage of a seroma. CURRENT MEDICATIONS: Please see the Med. Rec. list once they are verified in the computer. ALLERGIES: NO KNOWN DRUG ALLERGIES. FAMILY HISTORY: Reviewed and noncontributory. SOCIAL HISTORY: The patient is a retired Ag teacher. He lives in [place]. No smoking, no drinking, no illicit drugs. REVIEW OF SYSTEMS: CONSTITUTIONAL: Positive for malaise, but no fever or chills. No recent weight loss or weight gain. HEENT: No headaches, vision changes, ear pain, nasal congestion or throat pain. RESPIRATORY: No cough, hemoptysis or pleuritic chest pain. CARDIOVASCULAR: No chest pain, palpitations or peripheral edema. GASTROINTESTINAL: No nausea, vomiting, diarrhea, constipation or abdominal pain, but has had some decreased appetite. GENITOURINARY: No dysuria, frequency or flank pain. ENDOCRINE: No polydipsia, polyuria or polyphagia. No heat or cold intolerance. MUSCULOSKELETAL: Positive for the recent right knee surgeries and some pain related to that, but no other issues. SKIN: No rashes, lesions or wounds, except for the incision to the right knee. NEUROLOGIC: No syncope, paresthesias or seizures. HEMATOLOGIC: No easy bruising and no transfusion reaction. PHYSICAL EXAMINATION: VITAL SIGNS: Blood pressure currently is 111/46, heart rate 62, respiratory rate 16, temperature is afebrile, O2 saturation 995. GENERAL: Mr. Fernandez is a 75 year-old male patient who is in no active distress. NEUROLOGIC: The patient is alert. LUNGS: Clear. CARDIOVASCULAR: Regular rate and rhythm. Normal S1, S2. ABDOMEN: Soft. Positive bowel sounds. EXTREMITIES: Lower extremities with no edema, except for around the right knee. He does have some edema and some warmth to the touch. No significant erythema and the wound is sutured at this time, well approximated and no active drainage. Peripheral pulses are 2+. Capillary refill is less than 2 seconds. LABORATORY: White count 10.6, slight left shift with 81.4% neutrophils, hemoglobin 10.8. D-dimer is elevated at 1910. Chemistry shows a BUN of 26, creatinine 1.46 with a low sodium of 130, lactate 1.4, glucose slightly elevated at 133. Troponin was negative. Group A Strep was positive. RADIOLOGY: I have already spoken about the diagnostic radiology studies. ASSESSMENT: 1. Acute kidney injury. 2. Dehydration. 3. Recent right total knee arthroplasty revision with a subsequent seroma removal. 4. Group A Streptococcus. 5. Hypertension with current hypotension. PLAN: The patient will be admitted as observation. Additional IV fluids will be infused. I will go ahead and place him on some Alligator and will resume his home medications once they are verified in the computer. I am going to get a copy of his last knee culture as Dr. Negrete stated it was a light growth of Pseudomonas. In discharges with him, will go ahead and start some p.o. Levaquin. Will discontinue the doxycycline he was on at home. If stable in the morning, will likely discharge. [id number] [facility]
[2020-06-01] MEDS ORDERED: TEMAZEPAM 15 MG CAP PO PRN (21:30)
[2020-06-01] MEDS: SODIUM CHLORIDE 0.9% 1000ML 1,000 ML IVS PRN (21:35)
[2020-06-01] MEDS ORDERED: ACETAMINOPHEN 325 MG TAB PO PRN (21:57)
[2020-06-02] MEDS: SODIUM CHLORIDE 0.9% 1000ML 1,000 ML IVS PRN (07:28)
[2020-06-02 08:20] VITALS: BP 127/67; TEMP 98.7; O2SAT 99
[2020-06-02] MEDS ORDERED: MELOXICAM 7.5 MG TAB PO SCH (09:00)
[2020-06-02] MEDS ORDERED: ASPIRIN (CHEWABLE) 81 MG TAB PO SCH (09:00)
--- NOTE | 2020-06-02 11:30 | PCM.DS ---
Discharge Summary - Problem(s) (1) Acute kidney injury Comment(s): Resolved after IVF. Encourage adequate PO intake at home. (2) Dehydration Comment(s): Improved after IVF. Once again, encourage PO intake at home. (3) Strep pharyngitis Comment(s): Received Bicillin in the ER. Additonally was placed on Levaquin on the floor which should be good coverage. (4) Recent right TKA revision Comment(s): Also with subsequent I&D with seroma removal. Light growth Pseudomonas on culture. Will order Levaquin 750mg for 9 more days to complete 10 days. Will have follow up appointment with Dr. Negrete next week. (5) Hypertension Comment(s): Will instruct to hold Tekturna for now, and continue Cardizem. - Discharge Plan/CCD Care Plan Goals: Instructed to increase PO intake. Attend follow up appointments as scheduled, and take medications as prescribed. Activity as per physical therapy recommendations. Diet as per usual diet. Assessment: Alert and oriented prior to discharge in no distress. Right knee without sign of infection. No nausea/vomiting and VS stable.
[2020-06-02] MEDS ORDERED: TEMAZEPAM 15 MG CAP PO SCH (21:00)
== END 2020-06-02 10:35 | disposition home or self-care (01) ==
LOC: ER 14:29 → MS 19:19
PROVIDERS: ADMIT Nurse Practitioner; ATTEND Nurse Practitioner
DX: N17.9 Acute kidney failure, unspecified (principal); E86.0 Dehydration; J02.0 Streptococcal pharyngitis; I10 Essential (primary) hypertension; I95.9 Hypotension, unspecified; G89.18 Other acute postprocedural pain; Z20.828 Contact with and (suspected) exposure to other viral communicable diseases; Z98.890 Other specified postprocedural states; Z96.653 Presence of artificial knee joint, bilateral; Z79.1 Long term (current) use of non-steroidal anti-inflammatories (NSAID); Z79.82 Long term (current) use of aspirin; Z79.899 Other long term (current) drug therapy; Z85.828 Personal history of other malignant neoplasm of skin
CPT/HCPCS: 96360; 96361 ×2; 96372; J0561; J7030 ×3; 85379; 80048; 80053; 87880; 36415 ×2; 85025; 85730; 85610; 84484; 83880; 83605; 71045; 71275; 93971 ×2; 94760; 99285; 93005; G0378; 87502; 87635

== ENCOUNTER → 2020-06-01 | Outpatient (CLI) | payer OTHER | LOC: LAB.O 12:30 | PROVIDERS: ATTEND Orthopaedic Surgery | DX: M25.461 Effusion, right knee (principal) ==

== ENCOUNTER 2020-06-08 09:30 | Inpatient (IN) | payer OTHER ==
[2020-06-08] MEDS ORDERED: LACTATED RINGERS 1,000 ML IVS ONE (10:15)
[2020-06-08] MEDS ORDERED: LACTATED RINGERS 1,000 ML ONE (10:17)
[2020-06-08] MEDS ORDERED: SODIUM CHLORIDE 0.9% 250ML 250 ML ONE ×2 (10:20→19:00)
[2020-06-08] MEDS ORDERED: SODIUM CHL 0.9% 100ML MINI-BAG 100 ML IVPB ONE (10:20)
[2020-06-08] MEDS ORDERED: VANCOMYCIN HCL INJ 1,000 MG VIAL IVPB ONE ×2 (10:20→18:59)
[2020-06-08] MEDS ORDERED: ceFAZolin SODIUM 1 GM VIAL ONE (10:20)
[2020-06-08] MEDS ORDERED: DEXTROSE 5% 1000ML 0 ML IVS ONE (10:36)
[2020-06-08] MEDS ORDERED: DEX 5% W/NACL 0.9% 1000ML 1,000 ML IVS ONE (10:44)
[2020-06-08] MEDS ORDERED: BUPIVACAINE LIPOSOME 13.3 MG/ML VIAL INJ ONE (11:41)
[2020-06-08] MEDS ORDERED: BUPIVACAINE 0.5% 30 ML VIAL INJ ONE (11:41)
[2020-06-08] MEDS ORDERED: HYDROmorphone HCL INJ 2 MG/ML VIAL ONE (12:50)
[2020-06-08] MEDS ORDERED: MIDAZOLAM INJ 5 MG/5 ML VIAL ONE (12:50)
[2020-06-08] MEDS ORDERED: ELECTROLYTE-A 1,000 ML IVS ONE (13:43)
[2020-06-08] MEDS: VANCOMYCIN HCL INJ 1,000 MG VIAL IVPB ONE ×4 (14:22→15:00)
[2020-06-08] MEDS: ceFAZolin SODIUM 1 GM VIAL ONE ×3 (14:22→15:00)
[2020-06-08] MEDS ORDERED: TRANEXAMIC ACID 1,000 MG/10 ML VIAL ONE (14:24)
[2020-06-08] MEDS ORDERED: THROMBIN TOP ONE ×2 (14:30→14:45)
[2020-06-08] MEDS ORDERED: hydrOXYzine HCl 25 MG TAB PO PRN (15:25)
[2020-06-08] MEDS ORDERED: MAGNESIUM HYDROXIDE 30 ML UD PO PRN (15:25)
[2020-06-08] MEDS ORDERED: ALUMINUM & MAGNESIUM HYDROXIDE 30 ML UD PO PRN (15:25)
[2020-06-08] MEDS ORDERED: BISACODYL SUPPOSITORY 10 MG PR PRN (15:25)
[2020-06-08] MEDS ORDERED: BENZOCAINE-MENTH LOZ (CEPACOL) 1 EA LOZ MT PRN (15:25)
[2020-06-08] MEDS ORDERED: ZOLPIDEM TARTRATE 5 MG TAB PO PRN (15:25)
[2020-06-08] MEDS ORDERED: PROPOFOL 200 MG/20 ML VIAL IV ONE (17:01)
[2020-06-08] MEDS ORDERED: ACETAMINOPHEN 325 MG TAB ONE (18:30)
[2020-06-08] MEDS: ACETAMINOPHEN 325 MG TAB PO PRN (18:38)
[2020-06-08] MEDS: ceFAZolin SODIUM 2 GM in SODIUM CHLORIDE 0.9% 100ML 100 ML IVPB SCH (18:39)
[2020-06-08] MEDS ORDERED: traMADol HCL 50 MG TAB PO PRN (19:40)
[2020-06-08] MEDS: traMADol HCL 50 MG TAB PO PRN (19:42)
[2020-06-08] MEDS: TEMAZEPAM 15 MG CAP PO PRN ×2 (21:52→23:32)
[2020-06-08] MEDS: VANCOMYCIN HCL INJ 1,000 MG in SODIUM CHLORIDE 0.9% 250ML 250 ML IVPB SCH (21:52)
[2020-06-09] MEDS: ceFAZolin SODIUM 2 GM in SODIUM CHLORIDE 0.9% 100ML 100 ML IVPB SCH ×3 (02:00→18:02)
[2020-06-09] MEDS: traMADol HCL 50 MG TAB PO PRN ×3 (02:09→18:01)
[2020-06-09] MEDS: CYCLOBENZAPRINE HCL 10 MG TAB PO PRN ×3 (02:15→18:00)
[2020-06-09] MEDS: VANCOMYCIN HCL INJ 1,000 MG in SODIUM CHLORIDE 0.9% 250ML 250 ML IVPB SCH ×2 (09:31→21:31)
[2020-06-09] MEDS ORDERED: DEX 5% W/NACL 0.9% 1000ML 1,000 ML IVS PRN (10:51)
--- NOTE | 2020-06-09 13:08 | PN ---
DATE: 06/09/20 SUBJECTIVE: Mr. Fernandez is improved since yesterday. He says he has more energy. Pain is well controlled. OBJECTIVE: Afebrile. Vital signs stable. Dressing is clean. There is no drainage on the dressing. It is intact. ASSESSMENT: Status post incision and drainage of hematoma. PLAN: The plan at this point is to continue with compressive dressing. We will continue fluid rehydration and we are awaiting testing to see if he has some type of ongoing bleeding disorder that has not yet been identified. [id number]
--- NOTE | 2020-06-09 13:58 | CONS ---
SUPERVISING PHYSICIAN: Susan Strange MD DATE OF CONSULTATION: 06/09/20 HISTORY OF PRESENT ILLNESS: This is a 75-year-old male patient who actually had a right knee revision by Dr. Pedro Negrete on 05/12/20. He had had a previous total knee arthroplasty done over 20 years prior to his surgery. He had some difficulty with the knee and it was found that he needed to have it revised, so he was admitted back in April for revision of the total knee. He had no problems intraoperatively and was discharged per protocol. On 06/06/20, he was readmitted to the hospital for an I&D that required a clean-out of the previous incision and wound. He had had an accumulation of blood in the site. He was then discharged and he came back on 06/08/20 for another I&D due to accumulation of blood in the operative site. Dr. Negrete actually had cleaned the area out and noticed after 15 minutes it continued to ooze within the operative area and he was admitted to the Medical/Surgical Floor afterwards for close observation of the wound as well as monitoring of his bleeding. I was consulted. His home medications were re-started and he has been stable on the Medical/Surgical Floor with no active bleeding noted. PAST MEDICAL HISTORY: 1. Hypertension. 2. Previous skin cancer removed from his ear. PAST SURGICAL HISTORY: 1. Bilateral knee replacement. 2. Lumbar spine surgery. 3. Tonsillectomy at age 4. 4. Carpal tunnel release. OUTPATIENT MEDICATIONS: Per the EMR. ALLERGIES: NO KNOWN DRUG ALLERGIES. FAMILY HISTORY: The patient denies any bleeding disorders in his family that he knows of. SOCIAL HISTORY: He is a retired ag teacher. He lives in [place]. There is no history of smoking, ETOH or illicit drug use. He is . REVIEW OF SYSTEMS: Negative except as per history of present illness PHYSICAL EXAMINATION: VITAL SIGNS: Temperature 97.8, heart rate 67, blood pressure 120/65, respiratory rate 19, O2 saturation 96% on room air. GENERAL: This is a 75-year-old male patient who is lying in his hospital bed. He is resting comfortably. HEENT: Normocephalic, atraumatic. Pupils are equal and reactive. Oropharynx is clear. NECK: Supple without mass. RESPIRATORY: Clear to auscultation bilaterally. CARDIOVASCULAR: Regular rate and rhythm. GASTROINTESTINAL: Abdomen is soft, nondistended, nontender. Bowel sounds are positive. EXTREMITIES: He has a dressing to his right knee that is dry and intact. Bilateral pedal pulses are palpable at +2. NEUROLOGIC: Awake, alert and oriented times three. Cranial nerves II-XII are grossly intact as tested. LABORATORY: WBCs 6.4, hemoglobin 8.8, hematocrit 25.8, platelet count 275. ESR 60. PT 11.3, INR 1.1, PTT 30.3. Sodium 132, potassium 3.8, chloride 98, BUN 17, creatinine 0.78, calcium 7.9, magnesium 1.9. Wound culture is pending. All other labs and films have been reviewed via the EMR. IMPRESSION: 1. Incision and drainage of the right knee status post right knee incision and drainage, postoperative day #1. 2. Hypertension. PLAN: We will continue present supportive care. Dr. Negrete is managing and watching the patient's bleeding status at the incision site. He will monitor it closely over the next few days. Due to the patient requiring multiple I&Ds, I have called Dr. Jacques, entry examiner in [place], and she was recommended the patient have cryoprecipitate today and she would like to see him in consultation with some specific labs to be ordered at her recommendation, specifically for coagulopathies. I have ordered the labs as recommended. I will also let Dr. Arias know what labs have been done and we will get him to followup after discharge as well as do a referral to Dr. Jacques. He is also to go home on three days of oral vitamin K. We will continue to monitor the patient closely and follow as needed. #[id number] [facility]
[2020-06-09] MEDS: TEMAZEPAM 15 MG CAP PO PRN ×2 (21:31→22:56)
[2020-06-10] MEDS: ceFAZolin SODIUM 2 GM in SODIUM CHLORIDE 0.9% 100ML 100 ML IVPB SCH ×2 (02:38→09:34)
[2020-06-10] MEDS: VANCOMYCIN HCL INJ 1,000 MG in SODIUM CHLORIDE 0.9% 250ML 250 ML IVPB SCH (10:54)
[2020-06-10] MEDS ORDERED: LOPERAMIDE CAP 2 MG CAP PO PRN (13:13)
[2020-06-10] MEDS ORDERED: LOPERAMIDE CAP 2 MG CAP PO ONE (13:13)
[2020-06-10] MEDS ORDERED: GENTAMICIN PER PHARMACY IVPB SCH (14:00)
[2020-06-10] MEDS ORDERED: CEFEPIME 2 GM VIAL ONE (14:06)
[2020-06-10] MEDS ORDERED: LOPERAMIDE CAP 2 MG CAP ONE (14:06)
[2020-06-10] MEDS ORDERED: SODIUM CHL 0.9% 100ML MINI-BAG 100 ML IVPB ONE (14:07)
[2020-06-10] MEDS: CEFEPIME 2 GM in SODIUM CHL 0.9% 100ML MINI-BAG 100 ML IVPB SCH (14:12)
[2020-06-10] MEDS: ONDANSETRON INJ 4 MG/2 ML VIAL IV PRN (17:31)
[2020-06-10] MEDS ORDERED: SODIUM CHLORIDE 0.9% 100ML 100 ML IVPB ONE (20:45)
--- NOTE | 2020-06-10 20:58 | PN ---
SUPERVISING PHYSICIAN: Susan Strange MD DATE: 06/10/20 SUBJECTIVE: The patient is doing pretty well. He has not had any complaints or any more seepage from his leg. His bandage remains in place, clean and dry. He is afebrile. I did talk to Dr. Izquierdo in regards to the findings of Pseudomonas once again on the cultures and discussed with Dr. Negrete change in plan of care with antibiotic coverage with gentamicin and cefepime. OBJECTIVE: VITAL SIGNS: Temperature 98.6, pulse 69, blood pressure 127/72, respirations 16, saturation 98% on room air. GENERAL: The patient is resting comfortably, in no acute distress. CHEST: Lungs are clear to auscultation. HEART: Regular rate and rhythm. ABDOMEN: Soft, nontender. Bowel sounds are present. EXTREMITIES: Right knee has a bandage in place which looks to be clean and dry. Distal pulses are strong. Capillary refill brisk. NEUROLOGIC: Alert and oriented times three. LABORATORY: No additional laboratory today. MICROBIOLOGY: His preliminary wound cultures show Pseudomonas with sensitivity pending. RADIOLOGY: No additional radiographic studies. ASSESSMENT: 1. Incision and drainage of the right knee status post right knee incision and drainage, postoperative day #2, with cultures show Pseudomonas aeruginosa. 2. Hypertension, stable. PLAN: I did talk to Dr. Negrete after talking to Dr. Izquierdo with the culture results last time showing Pseudomonas and once again showing Pseudomonas this time. She recommended we change him to cefepime and give him a couple of doses of gentamicin until we have culture and sensitivity back. The patient has been doing well as far as his seepage, no additional bleeding. We will change his antibiotics and monitor his labs. Once we have the final culture results, we will discuss those findings with Dr. Izquierdo for plan of care in regards to the antibiotic coverage. Until then, we will continue to monitor and treat as needed. [facility][id number] [facility]
[2020-06-10] MEDS: ACETAMINOPHEN 325 MG TAB PO PRN (21:35)
[2020-06-10] MEDS: TEMAZEPAM 15 MG CAP PO PRN (21:35)
[2020-06-10] MEDS ORDERED: GENTAMICIN SULFATE IVPB SCH (22:00)
[2020-06-10] MEDS ORDERED: SODIUM CHLORIDE 0.9% IVPB SCH (22:00)
[2020-06-11] MEDS: CEFEPIME 2 GM in SODIUM CHL 0.9% 100ML MINI-BAG 100 ML IVPB SCH ×2 (02:35→14:34)
[2020-06-11] MEDS: ONDANSETRON INJ 4 MG/2 ML VIAL IV PRN ×2 (07:13→14:34)
--- NOTE | 2020-06-11 08:45 | PN ---
DATE: 06/11/20 SUBJECTIVE: Mr. Fernandez is improved, but still has little energy. OBJECTIVE: Afebrile. Vital signs stable. The wound is clean. He does have an effusion. ASSESSMENT: Status post incision and drainage. PLAN: We have had a conference call with Mr. Fernandez, his and his [id number] who is a nurse. I have gone over with Mr. Fernandez and the other two participants in the call and given them the results of some of the studies that we have back at this point. At this time, he is having moderate growth on one of three cultures involving Pseudomonas. Despite having a low white blood cell count and never having been febrile, we did discuss his case with Dr. Izquierdo, the infectious disease specialist in [place]. We talked extensively about options at this time and the suggestion was made that a PICC line be used with 6 weeks of antibiotics. At that time, we could switch him over to oral antibiotic. Today, given Yosef's nutritional status, I do not believe that performing a resection arthroplasty would be in his best interest. I do believe he would have trouble healing from that wound. That said, he did just have a recent thorough debridement and polyethylene exchange. The decision for antibiotic coverage will be based on final cultures. Dr. Izquierdo will be further consulted for that. Dr. Jacques has not had the labs necessary to determine if there is any type of bleeding issue that is causing Yosef to have these hematomas. Dr. Izquierdo felt that given Yosef's irritable bowel syndrome, that this issue likely arose from probable hematogenous seeding given that the Pseudomonas is a gut bacteria. He is going to discuss his situation with his , [id number] and other family members. He will make a choice on what he would like to do. I did offer at this time a resection arthroplasty, however, did stress my concerns that there could potentially be issues with healing, again, based on his nutritional status. I answered all their questions today and they all have my cell phone number as well as office number if they have any further questions or need to discuss the plan moving forward. #[id number] [facility]
--- NOTE | 2020-06-11 08:52 | PN ---
DATE: 06/10/20 SUBJECTIVE: Mr. Fernandez is doing okay and his pain is well controlled. He was having an issue last night with his bowel. OBJECTIVE: Afebrile. Vital signs stable. Dressing is clean, dry and intact. ASSESSMENT: Status post incision and drainage. PLAN: The plan at this point is for him to be weightbearing as tolerated, however, in his brace. We will continue to await cultures and other labs for definitive further treatment. [facility][id number] [facility]
[2020-06-11] MEDS ORDERED: PROMETHAZINE HCL INJ 25 MG/ML VIAL ONE (15:53)
[2020-06-11] MEDS ORDERED: SODIUM CHLORIDE 0.9% 50ML 50 ML ONE (15:53)
[2020-06-11] MEDS: PROMETHAZINE HCL INJ 12.5 MG in SODIUM CHLORIDE 0.9% 50ML 50 ML IVPB PRN (15:54)
[2020-06-11] MEDS: ACETAMINOPHEN 325 MG TAB PO PRN (21:05)
[2020-06-12] MEDS: TEMAZEPAM 15 MG CAP PO PRN ×2 (01:15→22:12)
--- NOTE | 2020-06-12 01:16 | RAD ---
EXAM: XR Chest, 1 View CLINICAL HISTORY: 75 years old Male; confirm placement of PICC line. TECHNIQUE: Frontal view of the chest. COMPARISON: Similar examination performed 06/01/2020. FINDINGS: LUNGS: Lungs clear of new focal infiltrate or mass. PLEURAL SPACE: No increasing pleural fluid, right costophrenic angle somewhat excluded from the [id number], however. No pneumothorax. HEART: Heart size stable. MEDIASTINUM: Unremarkable. BONES/JOINTS: No acute bony abnormality seen. VASCULATURE: Mild ectasia in the thoracic aorta. TUBES, LINES AND DEVICES: Interval placement of a right upper extremity PICC with its tip projected over the region of the cavoatrial junction. IMPRESSION: - Interval placement of a right upper extremity PICC with its tip projected over the region of the cavoatrial junction. Thank you for allowing us to participate in the care of this patient. Electronically signed by: Mehul Medina MD 06/12/2020 1:14 AM CDT
[2020-06-12] MEDS: CEFEPIME 2 GM in SODIUM CHL 0.9% 100ML MINI-BAG 100 ML IVPB SCH ×3 (01:40→21:46)
[2020-06-12] MEDS: ONDANSETRON INJ 4 MG/2 ML VIAL IV PRN (01:41)
[2020-06-12] MEDS: PROMETHAZINE HCL INJ 12.5 MG in SODIUM CHLORIDE 0.9% 50ML 50 ML IVPB PRN ×2 (07:57→19:28)
[2020-06-12] MEDS ORDERED: METOCLOPRAMIDE HCL 5 MG TAB PO ONE (07:59)
[2020-06-12] MEDS ORDERED: SODIUM CHLORIDE 0.9% IVPB SCH (09:00)
[2020-06-12] MEDS ORDERED: GENTAMICIN SULFATE IVPB SCH (09:00)
[2020-06-12] MEDS: METOCLOPRAMIDE HCL 5 MG TAB PO SCH ×3 (12:08→20:32)
--- NOTE | 2020-06-12 13:07 | PN ---
DATE: 06/12/20 SUBJECTIVE: Mr. Fernandez is up to a chair and seems to be improved today although he still has lack of energy. He is having some difficulty with ongoing nausea. OBJECTIVE: Afebrile. Vital signs stable. The wound is clean. There are no signs or symptoms of infection at this time. He does have what appears to be postoperative swelling, but no drainage from the wound. ASSESSMENT: Status post incision and drainage of the knee. PLAN: The plan at this point is to continue with IV antibiotics as directed by Dr. Izquierdo. The organism isolated appears to be Pseudomonas and Dr. Izquierdo felt this likely originated from seeding secondary to his irritable bowel syndrome. We are going to continue to work on his nutritional status. #[id number] [facility]
--- NOTE | 2020-06-12 13:19 | OP ---
DATE OF PROCEDURE: 06/08/20 PREOPERATIVE DIAGNOSIS: 1. Septic arthritis of the right knee. POSTOPERATIVE DIAGNOSIS: 1. Septic arthritis of the right knee. PROCEDURE: 1. Incision and drainage of the knee. SURGEON: Pedro Negrete MD DRILL RIG OPERATOR: Pete Gayle CST, SA-C ANESTHESIA: General anesthesia. COMPLICATIONS: None. FINDINGS: Drainage of the knee with both subcutaneous and intraarticular fluid. INDICATION: Mr. Fernandez has a history of a swelling in the knee which has caused pain. He has had drainage from the knee and unfortunately, he has been unable to have this resolved. He had initially had an I&D for hematoma for seroma. Because of that, he actually improved significantly, but began having worsening symptoms. He presented with a normal white count and no fevers. The plan was to irrigate and debride the knee and close the superior aspect of the wound. We discussed the risks, benefits and alternatives to of the right hand for this, and informed consent was obtained for the above procedure. PROCEDURE: The patient was brought to the Operating Room and placed in supine position. General anesthesia was induced and the patient's leg was sterilely prepped and draped. Following prepping and draping, incision was made in line with the previous incision. The arthrotomy was opened and cultures were taken at that time. Fluid was sent for immediate diagnosis and there did not appear to be a significant number of white cells, however, there did appear to be a very large amount of red cells. The knee was very thoroughly irrigated. There continued to be significant oozing from the tissues which were cauterized and he continued to have accumulation although there was no active arterial or venous bleeding. Because of that, I had to use thrombin to get the oozing to stop. I think this may in part be what was responsible for his development of hematoma. After hemostasis was achieved and before closure, 9 liters of fluid were irrigated through the knee. All remaining tissue seemed to be viable and there was no evidence of remaining pathologic tissue. The knee was closed with a combination of running and interrupted subcuticular stitches. Sterile dressings were placed. The patient was placed in compressive dressing, followed by placement in a brace. He was then taken to the Recovery Room. Postoperatively, he will be weightbearing, however, I am going to restrict his range of motion to allow the tissues to fully heal. He has demonstrated compromised nutritional status as evidenced by his preoperative labs. Because of that, we are going to work on optimizing that. We are going to start him on IV antibiotics and contact Dr. Izquierdo in [place] for guidance. We will plan further treatment based on that. I talked with Mr. Fernandez and his as well as his [id number] regarding findings and proposed treatment at this time. They expressed understanding. I have answered all of their questions. [facility][id number] [facility]
--- NOTE | 2020-06-12 15:36 | PN ---
SUPERVISING PHYSICIAN: Susan Strange MD DATE: 06/12/20 SUBJECTIVE: The patient is lying in bed. He is asleep. He feels somewhat better, but is somewhat discouraged from the complications he has had to his knee. We discussed his discharge for tomorrow and that he will have [facility] to assist him with his IV antibiotics. OBJECTIVE: VITAL SIGNS: Temperature 98.5, heart rate 70, blood pressure 130/64, respiratory rate 18, O2 saturation 95% on room air. RESPIRATORY: Essentially clear to auscultation bilaterally. CARDIAC: Regular rate and rhythm. EXTREMITIES: He has a midline to his right upper extremity. His dressing on his right knee and dry and intact. Bilateral pedal pulses are palpable at +2. LABORATORY: There are no labs or films to report at this time. ASSESSMENT: 1. Incision and drainage of the right knee status post right knee incision and drainage, postoperative day #4, with cultures showing Pseudomonas aeruginosa. 2. Hypertension, stable. 3. Irritable bowel syndrome. PLAN: We will continue present supportive care. We will give his gentamicin today and his cefepime. We will plan for discharge in the morning with [facility] to continue his antibiotic treatment for about 6 weeks. He will also have a followup with Dr. Arias as well as Dr. Jacques to review all the labs we have ordered for hematology. We will continue to monitor the patient closely and follow as needed. #[id number] [facility]
[2020-06-12] MEDS ORDERED: SODIUM CHL 0.9% 100ML MINI-BAG 100 ML IVPB ONE (18:57)
[2020-06-12] MEDS ORDERED: CEFEPIME 2 GM VIAL ONE (18:57)
[2020-06-13] MEDS: CEFEPIME 2 GM in SODIUM CHL 0.9% 100ML MINI-BAG 100 ML IVPB SCH (05:34)
[2020-06-13] MEDS: METOCLOPRAMIDE HCL 5 MG TAB PO SCH ×2 (06:31→11:12)
[2020-06-13] MEDS: ONDANSETRON INJ 4 MG/2 ML VIAL IV PRN (07:50)
[2020-06-13 09:04] VITALS: BP 122/69; TEMP 98.3; O2SAT 98
--- NOTE | 2020-06-13 14:47 | PN ---
DATE: 06/13/20 SUBJECTIVE: Mr. Fernandez currently is without pain. He is doing better with regards to his appetite, but still has some occasional nausea. OBJECTIVE: Afebrile. Vital signs stable. The dressing is clean. The wound is without drainage, although there is some dark discoloration on the distal portion of the incision. There is no erythema surrounding that area. ASSESSMENT: Knee joint sepsis. PLAN: At this point, he is to be discharged on IV antibiotics. He has appropriate home health care set up and he has been given appropriate instructions on wound care. He has my cell phone number and also the number of local physicians. He is to call should he have any change in his condition or if any concerns arise. Otherwise, I will see him in 10 days. #[id number] [facility]
--- NOTE | 2020-06-14 13:40 | DS ---
SUPERVISING PHYSICIAN: Susan Strange MD DISCHARGE DIAGNOSES: 1. Incision and drainage of the right knee status post right knee incision and drainage, postoperative day #5 with cultures showing Pseudomonas aeruginosa. 2. Hypertension, stable. 3. Irritable bowel syndrome. 4. Questionable coagulopathies pending testing and followup with Dr. Jacques. HISTORY OF PRESENT ILLNESS: This is a 75-year-old male patient who had a right knee revision by Dr. Pedro Negrete on 05/12/20. He had had a previous total knee arthroplasty done over 20 years ago prior to this surgery. He had some difficulty with the knee and it was found that he needed to have it revised so he was admitted back in April for revision of the total knee. He had no problems intraoperatively and was discharged per protocol. On 06/06/20, he was readmitted to the hospital for an I&D that required a clean-out of the previous incision and wound. He had had an accumulation of blood in the site. He was then discharged and he came back on 06/08/20 for another I&D due to accumulation of blood in the operative site. Dr. Negrete actually had cleaned the area out and noticed after 15 minutes it continued to ooze within the operative area so he was admitted to the Medical Surgical Floor afterwards for close observation of the wound as well as monitoring of his bleeding as well as monitoring cultures. I was consulted. His home medications were re-started and he was stable on the Medical/Surgical Floor with no active bleeding noted. HOSPITAL COURSE: Cultures were obtained during surgery. Due to the accumulation of blood in his postoperative wound, I called Dr. Jacques, deflash and wash operator in [place]. She recommended that the patient be given cryoprecipitate as well she gave me a list of send-out labs to help with possible coagulopathies. Those were ordered. She did say she would like to have a consultation from Dr. Arias after discharge. The labs would take about 2 weeks to complete. The patient did progress nicely during his hospital stay, there was no increased of bleeding noted and the patient had no pain as previously reported. His wound cultures did come back showing no growth during this stay but the culture from 05/27/20 showed Pseudomonas aeruginosa. The sensitivities were sent to Dr. Izquierdo, Infectious Disease in [place]. She recommended the patient be given 2 doses of clindamycin and to remain in the hospital until those doses were completed and that he should go home on 6 weeks of Cefepime. A PICC line was placed. Arrangements were made with [facility] to do the Cefepime infusions at home and that they would to appropriate teaching with family members and the patient will be discharged home today in stable condition. LABORATORY: WBCs 7.1, hemoglobin 10.8, hematocrit 31.7, ESR 49. Sodium 135, potassium 4.2, chloride 97. Carbon dioxide 27, BUN 25, creatinine 0.9, CRP 9.1 with a prealbumin of 12. The lab requested by Dr. Pizarro is still pending. His radiology reports are per the EMR. DISCHARGE PLAN: The patient will be discharged home in stable condition. He is to resume his medications as well as increase his activity as tolerated and as per Dr. Negrete's instruction. He is to resume his previous medications in addition to his routine home medications he has a prescription for cyclobenzaprine, Cefepime 2 grams IV piggyback every 8 hours x6 weeks, total antibiotic therapy. He also has Reglan, promethazine and Zofran. At the recommendation of Dr. Arias, we have started him on Remeron for depression and he will followup with that. He has a followup appointment with Dr. Negrete and he also has a followup with Dr. Arias on 06/18/2020 at 10:15 AM. That will be a Telehealth visit. It is recommended at that time that the patient get a referral with Dr. Jacques once her recommended labs have resulted. After completion of his 6 weeks of antibiotic therapy, he can be reevaluated for further antibiotic coverage. I have discussed his case at length with Dr. Negrete. We are in agreement with his discharge plan. At the recommendation of Dr. Jacques, the patient is to take no NSAIDS including aspirin until further evaluation so patient is strongly to encouraged to get up and move around. If he has any problems he is to return to the hospital or call Dr. Negrete or Dr. Arias for any problems or complications. DISCHARGE MEDICATIONS: 1. Diltiazem. 2. Tekturna. 3. Temazepam. 4. Tylenol. 5. Cyclobenzaprine. 6. Cefepime. 7. Reglan. 8. Remeron. 9. Promethazine. 10. Zofran. #[id number] [facility]
== END 2020-06-13 12:45 | disposition home health service (06) | DRG 486 ==
LOC: AMB 09:30 → OBSVTOIN 17:00 → MS 17:00
PROVIDERS: ADMIT Orthopaedic Surgery; ATTEND Nurse Practitioner Acute Care
PROC: 0S9C0ZZ Drainage of Right Knee Joint, Open Approach (ICD-10-PCS; principal; 2020-06-08 13:04)
PROC: 30233M1 Transfusion of Nonautologous Plasma Cryoprecipitate into Peripheral Vein, Percutaneous Approach (ICD-10-PCS; 2020-06-09)
PROC: 02HV33Z Insertion of Infusion Device into Superior Vena Cava, Percutaneous Approach (ICD-10-PCS; 2020-06-12)
DX: T84.53XA Infection and inflammatory reaction due to internal right knee prosthesis, initial encounter (principal); M00.861 Arthritis due to other bacteria, right knee; D68.9 Coagulation defect, unspecified; Z96.653 Presence of artificial knee joint, bilateral; I10 Essential (primary) hypertension; B96.5 Pseudomonas (aeruginosa) (mallei) (pseudomallei) as the cause of diseases classified elsewhere; K58.9 Irritable bowel syndrome, unspecified; Z88.1 Allergy status to other antibiotic agents

== ENCOUNTER → 2020-06-19 | Outpatient (CLI) | payer MEDICARE, OTHER | LOC: BFHH 13:29 | PROVIDERS: ATTEND Internal Medicine Infectious Disease | DX: I10 Essential (primary) hypertension (principal); T84.53XA Infection and inflammatory reaction due to internal right knee prosthesis, initial encounter; B96.5 Pseudomonas (aeruginosa) (mallei) (pseudomallei) as the cause of diseases classified elsewhere; K58.9 Irritable bowel syndrome, unspecified; Z79.2 Long term (current) use of antibiotics ==

== ENCOUNTER → 2020-06-26 | Outpatient (CLI) | payer OTHER | LOC: BFHH 12:59 | PROVIDERS: ATTEND Internal Medicine Infectious Disease | DX: I10 Essential (primary) hypertension (principal); T84.53XA Infection and inflammatory reaction due to internal right knee prosthesis, initial encounter; B96.5 Pseudomonas (aeruginosa) (mallei) (pseudomallei) as the cause of diseases classified elsewhere; Z79.2 Long term (current) use of antibiotics; K58.9 Irritable bowel syndrome, unspecified ==

== ENCOUNTER → 2020-07-03 | Outpatient (CLI) | payer OTHER | LOC: BFHH 15:15 | PROVIDERS: ATTEND Internal Medicine Infectious Disease | DX: I10 Essential (primary) hypertension (principal); T84.53XA Infection and inflammatory reaction due to internal right knee prosthesis, initial encounter; B96.5 Pseudomonas (aeruginosa) (mallei) (pseudomallei) as the cause of diseases classified elsewhere; Z79.2 Long term (current) use of antibiotics; K58.9 Irritable bowel syndrome, unspecified ==

== ENCOUNTER → 2020-07-08 | Outpatient (CLI) | payer OTHER | LOC: LAB.O 08:28 | PROVIDERS: ATTEND Orthopaedic Surgery | DX: Z13.29 Encounter for screening for other suspected endocrine disorder (principal); R94.7 Abnormal results of other endocrine function studies; R53.83 Other fatigue ==

== ENCOUNTER → 2020-07-10 | Outpatient (CLI) | payer OTHER | LOC: BFHH 12:06 | PROVIDERS: ATTEND Internal Medicine Infectious Disease | DX: I10 Essential (primary) hypertension (principal); T84.53XA Infection and inflammatory reaction due to internal right knee prosthesis, initial encounter; B96.5 Pseudomonas (aeruginosa) (mallei) (pseudomallei) as the cause of diseases classified elsewhere; Z79.2 Long term (current) use of antibiotics; K58.9 Irritable bowel syndrome, unspecified ==

== ENCOUNTER → 2020-07-17 | Outpatient (CLI) | payer MEDICARE, OTHER | LOC: BFHH 15:58 | PROVIDERS: ATTEND Internal Medicine Infectious Disease | DX: I10 Essential (primary) hypertension (principal); T84.53XA Infection and inflammatory reaction due to internal right knee prosthesis, initial encounter; B96.5 Pseudomonas (aeruginosa) (mallei) (pseudomallei) as the cause of diseases classified elsewhere; Z79.2 Long term (current) use of antibiotics; K58.9 Irritable bowel syndrome, unspecified ==

== ENCOUNTER → 2020-07-20 | Outpatient (CLI) | payer OTHER ==
--- NOTE | 2020-07-21 11:19 | MRI ---
EXAM DESCRIPTION: Brain w/wo Contrast: Magnetic Resonance Imaging. CLINICAL HISTORY: 75 years Male HYPOTENSION COMPARISON: None. TECHNIQUE: Multiplanar, high-field MRI, multiple conventional sequences, without and with 1 mL per 5 kg body weight Dotarem gadolinium IV contrast. No adverse reactions. Multiple axial diffusion sequences. FINDINGS: Pituitary gland is enlarged with homogeneous signal before and after IV gadolinium contrast. It is expanding the sella compartment measuring 1.3 x 1.9 cm in the sagittal plane and 2.3 cm transverse. Expansion into the suprasellar cistern with displacement of the infundibulum to the right of midline. Infundibulum is normally enhancing. The pituitary gland is also abutting the optic chiasm anteriorly and the proximal bilateral optic nerves. No abnormal contrast in the optic chiasm or optic nerves. No other mass in the suprasellar sellar cistern. No involvement of the bilateral carotid siphons in the cavernous sinuses. Hyperintense confluent in multiple foci of hyperintense FLAIR and T2-weighted signal in the periventricular white matter and oh-white matter junctions of the cerebral hemispheres. Involving most of the cerebral lobes with relative sparing of the temporal lobes. No hemorrhage, no cerebral edema, no mass-effect. No abnormal contrast enhancement. Normal signal in the bilateral basal ganglia. Normal contrast enhancement. Normal signal in the brainstem and cerebellar hemispheres. Normal contrast enhancement. Concordance of the diffusion and non-diffusion sequences with no evidence of acute or subacute infarction. Cortical sulci, ventricles, and other CSF spaces, and the subdural spaces are physiologic for the patient's age. No effacement or displacement. No midline shift. No extra-axial hemorrhage. Normal contrast enhancement. IACs are symmetric bilaterally. Normal signal in the bilateral mastoid air cells. No mass effect in the bilateral Cerebellopontine angles. Normal contrast enhancement. Base of the cerebellar tonsils is at the level of the foramen magnum. No significantly abnormal signal in the paranasal sinuses. The bony calvarium is intact. IMPRESSION: 1. Uniform enlargement of the pituitary gland expanding out of the sella with uniform signal before and after gadolinium IV contrast. No diffusion restriction. The upper pituitary is abutting the anterior optic chiasm and proximal optic nerves. Infundibulum is displaced to the right of midline. 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 This likely other pituitary benign or malignant tumor or metastasis. 2. Bilateral symmetric white matter disease in the periventricular white matter and subcortical white matter, without hemorrhage, mass effect, edema, or enhancement. Most likely age-related and/or cerebral microvascular disease. 3. Normal noncontrast MR perfusion scan with no evidence of acute significant ischemia, or acute or subacute infarction. Electronically signed by: Pete Gamez MD 07/21/2020 11:17 AM [facility]
== END ==
LOC: MRI 09:51
PROVIDERS: ATTEND Family Medicine
DX: I95.9 Hypotension, unspecified (principal); E23.6 Other disorders of pituitary gland; R90.82 White matter disease, unspecified

== ENCOUNTER → 2020-07-24 | Outpatient (CLI) | payer OTHER | LOC: BFHH 15:52 | PROVIDERS: ATTEND Internal Medicine Infectious Disease | DX: I10 Essential (primary) hypertension (principal); T84.53XA Infection and inflammatory reaction due to internal right knee prosthesis, initial encounter; B96.5 Pseudomonas (aeruginosa) (mallei) (pseudomallei) as the cause of diseases classified elsewhere; K58.9 Irritable bowel syndrome, unspecified; Z79.2 Long term (current) use of antibiotics ==

== ENCOUNTER → 2020-07-31 | Outpatient (CLI) | payer OTHER | LOC: BFHH 14:06 | PROVIDERS: ATTEND Internal Medicine Infectious Disease | DX: T84.53XA Infection and inflammatory reaction due to internal right knee prosthesis, initial encounter (principal); B96.5 Pseudomonas (aeruginosa) (mallei) (pseudomallei) as the cause of diseases classified elsewhere; Z45.2 Encounter for adjustment and management of vascular access device; Z79.2 Long term (current) use of antibiotics; K58.9 Irritable bowel syndrome, unspecified ==

== ENCOUNTER → 2020-10-06 | Outpatient (CLI) | payer OTHER | LOC: GMA MATASK 16:58 | PROVIDERS: ATTEND Family Medicine | DX: D50.9 Iron deficiency anemia, unspecified (principal); I10 Essential (primary) hypertension ==